=== PATIENT | male | born 1940 | race Caucasian/White ===

== ENCOUNTER 2022-08-24 00:52 | Inpatient (IN) | payer MEDICARE, OTHER ==
[2022-08-24] MEDS ORDERED: diphenhydrAMINE 50 MG/ML 1 ML VIAL IVP PRN (01:12)
[2022-08-24] MEDS: SODIUM CHLORIDE 0.9% 1,000 ML IV SCH ×3 (01:23→23:04)
[2022-08-24] MEDS: methylPREDNISolone SOD SUCCI 125 MG/2 ML VIAL IV SCH ×3 (01:23→17:27)
--- NOTE | 2022-08-24 01:26 | ED ---
General Adult HPI - General Chief complaint: Allergic Reaction Stated complaint: transfer/facial swelling Time Seen by Provider: 08/24/22 00:54 Source: EMS, RN notes reviewed, old records reviewed Mode of arrival: EMS Limitations: language barrier, altered mental status - History of Present Illness Initial comments: 81-year-old male sent as transfer from outside hospital for evaluation of angioedema. Patient unable to contribute to the history, secondary to autism. Patient is coming from the [place]. He has been prescribed lisinopril. He was treated at outside hospital with TXA, steroids, Pepcid and Benadryl. According to paramedics the swelling has significantly improved with treatment. There is no reported stridor. There is no dominant lip and tongue swelling which is improved. Patient is a DO NOT RESUSCITATE but it was noted in the medical record that he would be intubated if it was necessary - Related Data Allergies Allergy/AdvReac Type Severity Reaction Status Date / Time No Known Allergies Allergy Verified 08/24/22 01:19 Review of Systems ROS Statement: Those systems with pertinent positive or pertinent negative responses have been documented in the HPI. ROS Other: All systems not noted in ROS Statement are negative. 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 Absent: tenderness Skin exam: Present: warm, dry, intact Course Vital Signs 08/24/22 00:59 Temperature 97.6 F Pulse Rate 88 Respiratory 16 Rate Blood Pressure 113/73 O2 Sat by Pulse 94 L Oximetry Medical Decision Making - Medical Decision Making Was pt. sent in by a medical professional or institution (, PA, LOSS PREVENTION MANAGER, urgent care, hospital, or senior living...) When possible be specific @ Sent from outside hospital Did you speak to anyone other than the patient for history (EMS, parent, family, police, friend...)? What history was obtained from this source @ -EMS Did you review nursing and triage notes (agree or disagree)? Why? @ -[I reviewed and agree with nursing and triage notes] Were old charts reviewed (outside hosp., previous admission, EMS record, old EKG, old radiological studies, urgent care reports/EKG's, senior living records)? Report findings @ -[No old charts were reviewed] Differential Diagnosis (chest pain, altered mental status, abdominal pain women, abdominal pain men, vaginal bleeding, weakness, fever, dyspnea, syncope, headache, dizziness, GI bleed, back pain, seizure, CVA, palpatations, mental health, musculoskeletal)? @ -ALLERGIC reaction, angioedema EKG interpreted by me (3pts min.). @ -[As above] X-rays interpreted by me (1pt min.). @ -[None done] CT interpreted by me (1pt min.). @ -[None done] U/S interpreted by me (1pt. min.). @ -[None done] What testing was considered but not performed or refused? (CT, X-rays, U/S, labs)? Why? @ -[None] What meds were considered but not given or refused? Why? @ -[None] Did you discuss the management of the patient with other professionals (professionals i.e. , PA, LOSS PREVENTION MANAGER, lab, RT, psych nurse, healthcare social worker, fine patcher, teacher, customer service security officer, pillowcase cleaner)? Give summary @ -[No] Was smoking cessation discussed for >3mins.? @ -[No] Was critical care preformed (if so, how long)? @ -[No] Were there social determinants of health that impacted care today? How? (Home lessness, low income, unemployed, alcoholism, drug addiction, transportation, low edu. Level, literacy, decrease access to med. care, snf, rehab)? @ -Autistic, nonverbal Was there de-escalation of care discussed even if they declined (Discuss DNR or withdrawal of care, Hospice)? DNR status @ -DO NOT RESUSCITATE What co-morbidities impacted this encounter? (DM, HTN, Smoking, COPD, CAD, Cancer, CVA, ARF, Chemo, Hep., AIDS, mental health diagnosis, sleep apnea, morbid obesity)? @ -Hypertension Was patient admitted / discharged? Hospital course, mention meds given and route, prescriptions, significant lab abnormalities, going to OR and other pertinent info. @ -81-year-old male with angioedema, improving. Laboratory studies did reveal a sodium of 119. This will be repeated in the morning. Patient will be continued on steroids, and Benadryl. Undiagnosed new problem with uncertain prognosis? @ -[No] Drug Therapy requiring intensive monitoring for toxicity (Heparin, Nitro, Insulin, Cardizem)? @ -[No] Were any procedures done? @ -[No] Diagnosis/symptom? 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 @ -Acute Uncomplicated (without systemic symptoms) or Complicated (systemic symptoms)? @ -Complicated Side effects of treatment? @ -[No] Exacerbation, Progression, or Severe Exacerbation? @ -[No] Poses a threat to life or bodily function? How? (Chest pain, USA, PR, pneumonia, PE, COPD, DKA, ARF, appy, cholecystitis, CVA, Diverticulitis, Homicidal, Suicidal, threat to staff... and all critical care pts) @ -Yes, airway compromise, respiratory arrest Disposition Clinical Impression: Angioedema Disposition: ADMITTED IP TO THIS HOSP Condition: Serious Is patient prescribed a controlled substance at d/c from ED?: No Referrals: Elizabeth Lebron, HARINDER [Primary Care Provider] - 1-2 days Time of Disposition: 01:26
[2022-08-24] MEDS ORDERED: NALOXONE 0.4 MG/ML 1 ML VIAL IV PRN (01:28)
[2022-08-24] MEDS ORDERED: bisacodyL 10 MG SUPP RECTAL PRN (06:11)
[2022-08-24] MEDS: LEVOTHYROXINE 50 MCG TAB PO SCH (06:56)
[2022-08-24] MEDS ORDERED: guaiFENesin SYRUP 100MG/5ML 200 MG/10 ML CUP PO PRN (10:56)
[2022-08-24] MEDS ORDERED: diazePAM 5 MG TAB PO PRN (10:56)
[2022-08-24] MEDS ORDERED: guaiFENesin 600 MG TABLET.ER PO PRN (10:56)
[2022-08-24 12:26] LABS: Basophils % (A) 0 %; Eosinophils % (A) 0 %; HCT 35.7 % (39.0-53.0); HGB 12.5 gm/dL (13.0-17.5); Hyperchromasia Slight; Lymphocytes # (A) 0.5 k/uL (1.0-4.8); Lymphocytes % (A) 5 %; MCH 29.7 pg (25.0-35.0); MCHC 35.1 g/dL (31.0-37.0); MCV 84.6 fL (80.0-100.0); Mean Platelet Volume 7.1; Monocytes # (A) 0.1 k/uL (0-1.0); Monocytes % (A) 1 %; Neutrophils % (A) 94 %; Platelet Count 343 k/uL (150-450); RBC 4.22 m/uL (4.30-5.90); RDW 14.6 % (11.5-15.5); WBC 10.7 k/uL (3.8-10.6)
--- NOTE | 2022-08-24 14:26 | P.HPIM ---
History of Present Illness H&P Date: 08/24/22 History of present illness; patient 81-year-old gentleman with past medical history significant for autism who presented to our ER as a transfer from outside facility for angioedema. Patient is a resident of [facility], WAS RECENTLY STARTED ON LISINOPRIL. Patient was treated at outside hospital with TXA, steroids, Pepcid and Benadryl. According to paramedics the swelling has significantly improved with treatment. There was no reported stridor. Tongue swelling improved. Patient was admitted for further evaluation and treatment REVIEW OF SYSTEMS: Detailed review of systems cannot be obtained because of patient's current mental status PHYSICAL EXAMINATION: GENERAL: The patient HAS AUTISM, not in any acute distress. Well developed, well nourished. HEENT: Pupils are round and equally reacting to light. EOMI. No scleral icterus. No conjunctival pallor. Normocephalic, atraumatic. No pharyngeal erythema. No thyromegaly. CARDIOVASCULAR: S1 and S2 present. No murmurs, rubs, or gallops. PULMONARY: Chest is clear to auscultation, no wheezing or crackles. ABDOMEN: Soft, nontender, nondistended, normoactive bowel sounds. No palpable organomegaly. MUSCULOSKELETAL: No joint swelling or deformity. EXTREMITIES: No cyanosis, clubbing, or pedal edema. NEUROLOGICAL: Gross neurological examination did not reveal any focal deficits. SKIN: No rashes. 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, autism History of Any Multi-Drug Resistant Organisms: Unobtainable Past Psychological History: Unable to Obtain Smoking Status: Unknown if ever smoked Medications and Allergies Home Medications Medication Instructions Recorded Confirmed Type Acetaminophen Tab [Tylenol] 500 - 1,000 mg PO Q8HR PRN 08/24/22 08/24/22 History Aspirin 325 mg PO DAILY 08/24/22 08/24/22 History Bethanechol [Urecholine] 10 mg PO TID@0800,1600,2000 08/24/22 08/24/22 History Calcium Carb-Vit D 500Mg-5Mcg 1 tab PO DAILY@0800 08/24/22 08/24/22 History [Oscal 500+D 5 Mcg (200 Iu)] Levothyroxine Sodium [Levo-T] 50 mcg PO DAILY@1600 08/24/22 08/24/22 History Loperamide [Imodium] 2 mg PO DAILY@0800 08/24/22 08/24/22 History Magnesium Hydroxide [Milk of 4,800 mg PO Q3D PRN 08/24/22 08/24/22 History Magnesia] Mineral Oil [Fleet Mineral Oil] 133 ml RECTAL DAILY PRN 08/24/22 08/24/22 History Multivitamins, Thera [Multivitamin 1 tab PO DAILY@0800 08/24/22 08/24/22 History (formulary)] Mylanta 30 ml PO Q4H PRN 08/24/22 08/24/22 History Iicmjqhj-Xvcnbafyne-Puld Oint 1 applic TOPICAL BID PRN 08/24/22 08/24/22 History [Triple Antibiotic Ointment] Nystatin 100,000Unit/gm Cream 1 applic TOPICAL BID PRN 08/24/22 08/24/22 History [Mycostatin Cream] [place]-3/Dha/Epa/Fish Oil [Fish Oil 1 cap PO DAILY@0800 08/24/22 08/24/22 History 1,000 mg Softgel] Phenyleph/Mineral Oil/Petrolat 1 applic RECTAL BID PRN 08/24/22 08/24/22 History [Preparation H Ointment] Simvastatin 10 mg PO HS 08/24/22 08/24/22 History Tamsulosin [Flomax] 0.4 mg PO DAILY@0800 08/24/22 08/24/22 History bisacodyL [Dulcolax] 10 mg RECTAL DAILY PRN 08/24/22 08/24/22 History diazePAM [Valium] 5 mg PO DAILY PRN 08/24/22 08/24/22 History guaiFENesin [Mucinex] 600 mg PO Q6HR PRN 08/24/22 08/24/22 History guaiFENesin [guaiFENesin Oral 200 mg PO Q4H PRN 08/24/22 08/24/22 History Solution] lisinopriL [Zestril] 20 mg PO DAILY@0800 08/24/22 08/24/22 History Allergies Allergy/AdvReac Type Severity Reaction Status Date / Time lisinopril Allergy Severe Anaphylaxis Verified 08/24/22 07:13 Physical Exam Vitals: Vital Signs Temp Pulse Pulse Resp BP BP Pulse Ox 08/24/22 07:17 98.4 F 55 L 18 126/70 95 08/24/22 02:59 97.1 F L 82 18 152/87 98 08/24/22 02:33 83 16 119/74 95 08/24/22 00:59 97.6 F 88 16 113/73 94 L Intake and Output 08/23/22 08/24/22 08/24/22 22:59 06:59 14:59 Intake Total 20 Balance 20 Intake: Oral 20 Other: # Voids 1 1 Weight 89 kg Results CBC & Chem 7: 08/24/22 11:38 Thrombosis Risk Factor Assmnt - Choose All That Apply Any of the Below Risk Factors Present?: No
[2022-08-24] MEDS: BETHANECHOL 10 MG TAB PO SCH ×2 (17:28→22:19)
[2022-08-24] MEDS: ATORVASTATIN 10 MG TAB PO SCH (22:19)
[2022-08-24] MEDS: FAMOTIDINE 20 MG/2 ML VIAL IV SCH (23:01)
[2022-08-25] MEDS: methylPREDNISolone SOD SUCCI 125 MG/2 ML VIAL IV SCH ×3 (00:08→18:10)
[2022-08-25] MEDS: LEVOTHYROXINE 50 MCG TAB PO SCH (05:27)
[2022-08-25 09:03] LABS: Basophils # (A) 0.03 X 10*3/uL (0.00-0.10); Basophils % (A) 0.1 %; Eosinophils # (A) 0 X 10*3/uL (0.04-0.35); Eosinophils % (A) 0 %; HGB 12.3 g/dL (13.0-17.0); Immature Grans, Automated 2.7 %; Lymphocytes # (A) 0.71 X 10*3/uL (0.90-5.00); Lymphocytes % (A) 3.3 %; MCH 29.5 pg (27.0-32.0); MCHC 34.2 g/dL (32.0-37.0); MCV 86.3 fL (80.0-97.0); Mean Platelet Volume 8.7 fL (9.5-12.2); Monocytes # (A) 0.82 X 10*3/uL (0.20-1.00); Monocytes % (A) 3.8 %; NRBC Per 100 WBC 0 /100 WBCS (0.0-0.0); Neutrophils # (A) 19.29 X 10*3/uL (1.80-7.70); Neutrophils % (A) 90.1 %; Platelet Count 372 X 10*3/uL (140-440); RBC 4.17 X 10*6/uL (4.40-5.60); RDW 14.3 % (11.5-14.5); WBC 21.42 X 10*3/uL (4.50-10.00)
[2022-08-25 09:07] LABS: African American GFR (CKD) 28.7 (60.0-200.0); Albumin/Globulin Ratio 1.38 (1.60-3.17); Anion Gap 18.1 mmol/L (10.00-18.00); BUN/Creat Ratio 20.25 Ratio (12.00-20.00); Blood Urea Nitrogen 48.6 mg/dL (9.0-27.0); Calcium 9.4 mg/dL (8.7-10.3); Carbon Dioxide 14.9 mmol/L (20.0-27.5); Globulin 2.9 g/dL (1.6-3.3); Non-African American GFR(CKD) 24.7 (60.0-200.0); Potassium 4.8 mmol/L (3.5-5.5); Total Bilirubin 0.3 mg/dL (0.30-1.20); Total Protein 6.9 g/dL (6.2-8.2)
[2022-08-25] MEDS: BETHANECHOL 10 MG TAB PO SCH ×3 (09:36→19:37)
[2022-08-25] MEDS: CALCIUM CARB-VIT D 500 MG-5 MCG TAB PO SCH (09:36)
[2022-08-25] MEDS: FAMOTIDINE 20 MG/2 ML VIAL IV SCH (09:37)
[2022-08-25] MEDS: MULTIVITAMINS, THERA 1 EACH TAB PO SCH (09:37)
[2022-08-25] MEDS: ASPIRIN 325 MG TAB PO SCH (09:37)
[2022-08-25] MEDS: TAMSULOSIN 0.4 MG CAP.ER.24H PO SCH (09:37)
--- NOTE | 2022-08-25 13:15 | P.DS ---
Providers Date of admission: 08/24/22 01:28 Expected date of discharge: 08/25/22 Attending physician: Pablito Gallagher Primary care physician: HARINDER Pablo Hospital Course: Discharge diagnoses; Angioedema Autism Leukocytosis secondary to steroids Hyponatremia Hospital course; patient 81-year-old gentleman with past medical history significant for autism who presented to our ER as a transfer from outside facility for angioedema. Patient is a resident of [facility], WAS RECENTLY STARTED ON LISINOPRIL. Patient was treated at outside hospital with TXA, steroids, Pepcid and Benadryl. According to paramedics the swelling has significantly improved with treatment. There was no reported stridor. Tongue swelling improved. Patient was admitted for further evaluation and treatment 08/25. Patient was kept on steroids, Benadryl and Pepcid. Currently patient is not having any symptoms of stridor or throat swelling. Patient is tolerating diet. Will be discharged on Medrol Dosepak. We'll discontinue lisinopril at discharge PHYSICAL EXAMINATION: GENERAL: The patient HAS AUTISM, not in any acute distress. Well developed, well nourished. HEENT: Pupils are round and equally reacting to light. EOMI. No scleral icterus. No conjunctival pallor. Normocephalic, atraumatic. No pharyngeal erythema. No thyromegaly. CARDIOVASCULAR: S1 and S2 present. No murmurs, rubs, or gallops. PULMONARY: Chest is clear to auscultation, no wheezing or crackles. ABDOMEN: Soft, nontender, nondistended, normoactive bowel sounds. No palpable organomegaly. MUSCULOSKELETAL: No joint swelling or deformity. EXTREMITIES: No cyanosis, clubbing, or pedal edema. NEUROLOGICAL: Gross neurological examination did not reveal any focal deficits. SKIN: No rashes Patient Condition at Discharge: Stable Plan - Discharge Summary New Discharge Prescriptions: New methylPREDNISolone Dose Pack [Medrol Dose Pack] 4 mg PO DIRECTED #1 packet Continue Aspirin 325 mg PO DAILY Levothyroxine Sodium [Levo-T] 50 mcg PO DAILY@1600 Loperamide [Imodium] 2 mg PO DAILY@0800 Tamsulosin [Flomax] 0.4 mg PO DAILY@0800 diazePAM [Valium] 5 mg PO DAILY PRN PRN Reason: Agitation Mineral Oil [Fleet Mineral Oil] 133 ml RECTAL DAILY PRN PRN Reason: Constipation Acetaminophen Tab [Tylenol] 500 - 1,000 mg PO Q8HR PRN PRN Reason: Pain Magnesium Hydroxide [Milk of Magnesia] 4,800 mg PO Q3D PRN PRN Reason: Constipation Vgqhfhxg-Yrveuhqqqz-Uuqg Oint [Triple Antibiotic Ointment] 1 applic TOPICAL BID PRN PRN Reason: Skin Irritation Bethanechol [Urecholine] 10 mg PO TID@0800,1600,1999 [place]-3/Dha/Epa/Fish Oil [Fish Oil 1,000 mg Softgel] 1 cap PO DAILY@0800 Simvastatin 10 mg PO HS bisacodyL [Dulcolax] 10 mg RECTAL DAILY PRN PRN Reason: Constipation guaiFENesin [guaiFENesin Oral Solution] 200 mg PO Q4H PRN PRN Reason: Cough Phenyleph/Mineral Oil/Petrolat [Preparation H Ointment] 1 applic RECTAL BID PRN PRN Reason: Hemorrhoids guaiFENesin [Mucinex] 600 mg PO Q6HR PRN PRN Reason: Secretions Nystatin 100,000Unit/gm Cream [Mycostatin Cream] 1 applic TOPICAL BID PRN PRN Reason: Rash Mylanta 30 ml PO Q4H PRN PRN Reason: indigestion/heartburn Multivitamins, Thera [Multivitamin (formulary)] 1 tab PO DAILY@0800 Calcium Carb-Vit D 500Mg-5Mcg [Oscal 500+D 5 Mcg (200 Iu)] 1 tab PO DAILY@0800 Discontinued lisinopriL [Zestril] 20 mg PO DAILY@0800 Discharge Medication List Acetaminophen Tab [Tylenol] 500 - 1,000 mg PO Q8HR PRN 08/24/22 [History] Aspirin 325 mg PO DAILY 08/24/22 [History] Bethanechol [Urecholine] 10 mg PO TID@0800,1600,199908/24/22 [History] Calcium Carb-Vit D 500Mg-5Mcg [Oscal 500+D 5 Mcg (200 Iu)] 1 tab PO DAILY@0800 08/24/22 [History] Levothyroxine Sodium [Levo-T] 50 mcg PO DAILY@1600 08/24/22 [History] Loperamide [Imodium] 2 mg PO DAILY@0800 08/24/22 [History] Magnesium Hydroxide [Milk of Magnesia] 4,800 mg PO Q3D PRN 08/24/22 [History] Mineral Oil [Fleet Mineral Oil] 133 ml RECTAL DAILY PRN 08/24/22 [History] Multivitamins, Thera [Multivitamin (formulary)] 1 tab PO DAILY@0800 08/24/22 [History] Mylanta 30 ml PO Q4H PRN 08/24/22 [History] Ebkmrprd-Bgepxpvwur-Tyjj Oint [Triple Antibiotic Ointment] 1 applic TOPICAL BID PRN 08/24/22 [History] Nystatin 100,000Unit/gm Cream [Mycostatin Cream] 1 applic TOPICAL BID PRN 08/24/22 [History] [place]-3/Dha/Epa/Fish Oil [Fish Oil 1,000 mg Softgel] 1 cap PO DAILY@0800 [History] Phenyleph/Mineral Oil/Petrolat [Preparation H Ointment] 1 applic RECTAL BID PRN 08/24/22 [History] Simvastatin 10 mg PO HS 08/24/22 [History] Tamsulosin [Flomax] 0.4 mg PO DAILY@0800 08/24/22 [History] bisacodyL [Dulcolax] 10 mg RECTAL DAILY PRN 08/24/22 [History] diazePAM [Valium] 5 mg PO DAILY PRN 08/24/22 [History] guaiFENesin [Mucinex] 600 mg PO Q6HR PRN 08/24/22 [History] guaiFENesin [guaiFENesin Oral Solution] 200 mg PO Q4H PRN 08/24/22 [History] methylPREDNISolone Dose Pack [Medrol Dose Pack] 4 mg PO DIRECTED #1 packet 08/25/22 [Rx] Follow up Appointment(s)/Referral(s): Elizabeth Lebron NPC [Primary Care Provider] - 1-2 days Discharge Disposition: TRANSFER TO SNF/ECF
--- NOTE | 2022-08-25 13:27 | P.PN ---
Subjective Progress Note Date: 08/25/22 patient 81-year-old gentleman with past medical history significant for autism who presented to our ER as a transfer from outside facility for angioedema. Patient is a resident of [place], WAS RECENTLY STARTED ON LISINOPRIL. Patient was treated at outside hospital with TXA, steroids, Pepcid and Benadryl. According to paramedics the swelling has significantly improved with treatment. There was no reported stridor. Tongue swelling improved. Patient was admitted for further evaluation and treatment 08/25. Patient seen and examined. Patient has no further episodes of throat swelling or any evidence of any stridor. Current tolerating diet. Initial plan was for patient to be discharged but blood work done showed patient to have elevated BUN/creatinine, constipation PCP was in the file but patient apparently has not been seen by them since May 19 and has been discharged from their care. At this time we'll order ultrasound of kidneys, urine lites, bladder scan and consult nephrology REVIEW OF SYSTEMS: Unable to obtain a detailed review of systems because of patient history of autism PHYSICAL EXAMINATION: GENERAL: The patient HAS AUTISM, not in any acute distress. Well developed, well nourished. HEENT: Pupils are round and equally reacting to light. EOMI. No scleral icterus. No conjunctival pallor. Normocephalic, atraumatic. No pharyngeal erythema. No thyromegaly. CARDIOVASCULAR: S1 and S2 present. No murmurs, rubs, or gallops. PULMONARY: Chest is clear to auscultation, no wheezing or crackles. ABDOMEN: Soft, nontender, nondistended, normoactive bowel sounds. No palpable organomegaly. MUSCULOSKELETAL: No joint swelling or deformity. EXTREMITIES: No cyanosis, clubbing, or pedal edema. NEUROLOGICAL: Gross neurological examination did not reveal any focal deficits. SKIN: No rashes Assessment and plan Angioedema Autism Leukocytosis secondary to steroids Hyponatremia Acute kidney injury Plan Monitor vital signs Monitor CBC Monitor CMP Continue IV fluids Ordered urine lites Avoid nephrotoxic agents Ordered ultrasound of kidneys Continue IV fluids and consult nephrology Objective - Vital Signs Vital signs: Vital Signs Temp 98.9 F 08/25/22 07:25 Pulse 109 H 08/25/22 08:00 Resp 16 08/25/22 08:00 BP 142/72 08/25/22 07:25 Pulse Ox 94 L 08/25/22 07:25 FiO2 Intake & Output 08/24/22 08/25/22 08/25/22 18:59 06:59 18:59 Intake Total 1080 Balance 1080 Intake: Oral 1080 Other: Voiding Method Diaper Diaper Incontinent Incontinent # Voids 6 2 2 # Bowel Movements 2 2 - Labs CBC & Chem 7: 08/25/22 04:24 08/25/22 04:24 Labs: Abnormal Lab Results - Last 24 Hours (Table) 08/25/22 08/25/22 Range/Units 04:24 04:24 WBC 21.42 H (4.50-10.00) X 10*3/uL RBC 4.17 L (4.40-5.60) X 10*6/uL Hgb 12.3 L (13.0-17.0) g/dL Hct 36.0 L (39.6-50.0) % MPV 8.7 L (9.5-12.2) fL Immature Gran # 0.57 H (0.00-0.04) X 10*3/uL Neutrophils # 19.29 H (1.80-7.70) X 10*3/uL Lymphocytes # 0.71 L (0.90-5.00) X 10*3/uL Eosinophils # 0 L (0.04-0.35) X 10*3/uL Sodium 131 L (135-145) mmol/L Carbon Dioxide 14.9 L (20.0-27.5) mmol/L Anion Gap 18.10 H (10.00-18.00) mmol/L BUN 48.6 H (9.0-27.0) mg/dL Creatinine 2.4 H (0.6-1.5) mg/dL Est GFR (CKD-EPI)AfAm 28.7 L (60.0-200.0) Est GFR (CKD-EPI)NonAf 24.7 L (60.0-200.0) BUN/Creatinine Ratio 20.25 H (12.00-20.00) Ratio Glucose 179 H (70-110) mg/dL Albumin/Globulin Ratio 1.38 L (1.60-3.17) g/dL
--- NOTE | 2022-08-25 15:42 | US ---
EXAMINATION TYPE: US kidneys/renal and bladder DATE OF EXAM: 08/25/2022 COMPARISON: NONE CLINICAL HISTORY: Acute kidney injury. Exam done portable EXAM MEASUREMENTS: Right Kidney: 10.8 x 6.9 x 6.4 cm Left Kidney: n/a Right Kidney: Marked hydronephrosis Left Kidney: unable to visualize due to patient position and overlying bowel gas Bladder: echoes seen within posterior portion of bladder, 2.8cm outpouching diverticulum along right wall IMPRESSION: 1. Marked right hydronephrosis. 2. Left kidney not identified. 3. Debris within urinary bladder. 4. Urinary bladder diverticulum
[2022-08-25] MEDS ORDERED: MENTHOL-ZINC OXIDE OINT 113 GM TUBE TOPICAL PRN (16:27)
[2022-08-25 17:27] LABS: Appearance,Urine Turbid (Clear); Bacteria,Urine Many /hpf; Bilirubin,Urine Negative (Negative); Blood,Urine Moderate (Negative); Color,Urine Yellow; Glucose,Urine (UA) Negative (Negative); Ketones,Urine Negative (Negative); Leukocyte Esterase,Urine Large (Negative); Nitrite,Urine Negative (Negative); Protein,Urine 1+ (Negative); RBC,Urine 22 /hpf (0-5); Specific Gravity,Urine 1.019 (1.001-1.035); Urobilinogen,Urine <2.0 mg/dL (<2.0); WBC,Urine >182 /hpf (0-5)
[2022-08-25] MEDS: SODIUM CHLORIDE 0.9% 1,000 ML IV SCH ×2 (18:01→19:31)
[2022-08-25] MEDS: ATORVASTATIN 10 MG TAB PO SCH (19:37)
[2022-08-25] MEDS ORDERED: FAMOTIDINE 20 MG TAB PO SCH (21:00)
[2022-08-25 23:58] LABS: Potassium,Urine Random 28.7 mmol/L (25.0-125.0)
[2022-08-26] MEDS: methylPREDNISolone SOD SUCCI 125 MG/2 ML VIAL IV SCH ×3 (00:15→18:30)
[2022-08-26 04:35] LABS: Creatinine,Urine Random 56.6 mg/dL (39.0-259.0)
[2022-08-26] MEDS: LEVOTHYROXINE 50 MCG TAB PO SCH (05:47)
[2022-08-26] MEDS: MULTIVITAMINS, THERA 1 EACH TAB PO SCH (09:04)
[2022-08-26] MEDS: TAMSULOSIN 0.4 MG CAP.ER.24H PO SCH (09:04)
[2022-08-26] MEDS: CALCIUM CARB-VIT D 500 MG-5 MCG TAB PO SCH (09:04)
[2022-08-26] MEDS: BETHANECHOL 10 MG TAB PO SCH ×3 (09:05→21:08)
[2022-08-26] MEDS: ASPIRIN 325 MG TAB PO SCH (09:05)
[2022-08-26] MEDS: FAMOTIDINE 20 MG TAB PO SCH (09:05)
--- NOTE | 2022-08-26 11:37 | P.GSCN ---
History of Present Illness Consult date: 08/26/22 Reason for Consult: Urinary retention Requesting physician: Aime Ramirez History of present illness: The patient is a 81-year-old male with past medical history significant for hypertension and autism. He is nonverbal and blind and [facility] a [facility]. He presented to the emergency department as a transfer from an outside hospital on 08/24/22 for evaluation of angioedema. The patient had been started on lisinopril for his hypertension. He was treated at outside hospital with TXA, steroids, Pepcid and Benadryl. According to paramedics the swelling has significantly improved with treatment. There was no reported stridor. There have been no further episodes of throat swelling or any evidence of any stridor. Current tolerating diet. Medicines initial plan was for patient to be discharged but blood work done showed patient to have elevated BUN/creatinine. Kidney/bladder ultrasound shows marked right hydronephrosis, left kidney was not identified and urinary bladder diverticulum. On 08/25/22 the patient was bladder scanned which showed 922 mL of retained urine and a Quispe catheter was initiated. Urology was consulted for urinary retention. UA indicated of of UTI. Urine culture pending.Serum creatinine 2.4, baseline unknown. Nephrology following for LINO. Review of Systems ROS unobtainable: due to mental status Past Medical History Past Medical History: Hypertension Additional Past Medical History / Comment(s): Blind, autism History of Any Multi-Drug Resistant Organisms: Unobtainable Past Psychological History: Unable to Obtain Smoking Status: Unknown if ever smoked Medications and Allergies Home Medications Medication Instructions Recorded Confirmed Type Acetaminophen Tab [Tylenol] 500 - 1,000 mg PO Q8HR PRN 08/24/22 08/24/22 History Aspirin 325 mg PO DAILY 08/24/22 08/24/22 History Bethanechol [Urecholine] 10 mg PO TID@0800,1600,199908/24/22 08/24/22 History Calcium Carb-Vit D 500Mg-5Mcg 1 tab PO DAILY@0800 08/24/22 08/24/22 History [Oscal 500+D 5 Mcg (200 Iu)] Levothyroxine Sodium [Levo-T] 50 mcg PO DAILY@1600 08/24/22 08/24/22 History Loperamide [Imodium] 2 mg PO DAILY@0800 08/24/22 08/24/22 History Magnesium Hydroxide [Milk of 4,800 mg PO Q3D PRN 08/24/22 08/24/22 History Magnesia] Mineral Oil [Fleet Mineral Oil] 133 ml RECTAL DAILY PRN 08/24/22 08/24/22 History Multivitamins, Thera [Multivitamin 1 tab PO DAILY@0800 08/24/22 08/24/22 History (formulary)] Mylanta 30 ml PO Q4H PRN 08/24/22 08/24/22 History Vqwqkvqv-Odebywfgpk-Ccby Oint 1 applic TOPICAL BID PRN 08/24/22 08/24/22 History [Triple Antibiotic Ointment] Nystatin 100,000Unit/gm Cream 1 applic TOPICAL BID PRN 08/24/22 08/24/22 History [Mycostatin Cream] [place]ron-3/Dha/Epa/Fish Oil [Fish Oil 1 cap PO DAILY@0800 08/24/22 08/24/22 History 1,000 mg Softgel] Phenyleph/Mineral Oil/Petrolat 1 applic RECTAL BID PRN 08/24/22 08/24/22 History [Preparation H Ointment] Simvastatin 10 mg PO HS 08/24/22 08/24/22 History Tamsulosin [Flomax] 0.4 mg PO DAILY@0800 08/24/22 08/24/22 History bisacodyL [Dulcolax] 10 mg RECTAL DAILY PRN 08/24/22 08/24/22 History diazePAM [Valium] 5 mg PO DAILY PRN 08/24/22 08/24/22 History guaiFENesin [Mucinex] 600 mg PO Q6HR PRN 08/24/22 08/24/22 History guaiFENesin [guaiFENesin Oral 200 mg PO Q4H PRN 08/24/22 08/24/22 History Solution] methylPREDNISolone Dose Pack 4 mg PO DIRECTED #1 packet 08/25/22 Rx [Medrol Dose Pack] Allergies Allergy/AdvReac Type Severity Reaction Status Date / Time lisinopril Allergy Severe Anaphylaxis Verified 08/24/22 07:13 Surgical - Exam Vital Signs Temp Pulse Resp BP Pulse Ox 97.6 F 88 16 113/73 94 L 08/24/22 00:59 08/24/22 00:59 08/24/22 00:59 08/24/22 00:59 08/24/22 00:59 General: Well developed, well nourished. No acute distress. Nontoxic appearing. HEENT: Head is atraumatic, normocephalic. Lungs: Respirations even and nonlabored. Abdomen/GI: Soft, non-distended. No guarding, rigidity, or abdominal tenderness. No flank tenderness. : No suprapubic tenderness. Quispe catheter in place draining cloudy yellow u rine Skin: Warm and dry Neurologic: Autistic, nonverbal and blind Results - Labs 08/26/22 12:23 08/25/22 04:24 Abnormal Lab Results - Last 24 Hours (Table) 08/25/22 Range/Units 16:40 Urine Protein 1+ H (Negative) Urine Blood Moderate H (Negative) Ur Leukocyte Esterase Large H (Negative) Urine RBC 22 H (0-5) /hpf Urine WBC >182 H (0-5) /hpf Urine WBC Clumps Many H (None) /hpf Urine Bacteria Many H (None) /hpf Microbiology - Last 24 Hours (Table) 08/25/22 16:40 Urine Culture - Preliminary Urine,Voided - Imaging US - kidney/bladder: report reviewed Assessment and Plan Assessment: Patient is autistic, nonverbal, and from a penitentiary. History obtained from EMR. The patient is afebrile, vital signs are stable, and he is on room air. The patient has a Quispe catheter which is draining cloudy yellow urine. Given the degree of over distention, the patient's Quispe catheter should be maintained for 7-10 days to allow the bladder to regain its tone. Hydronephrosis is secondary to urinary retention. (1) Hydronephrosis Current Visit: Yes Status: Acute Code(s): N13.30 - UNSPECIFIED HYDRONEPHROSIS SNOMED Code(s): 85151876 Plan: - Awaiting finalization of urine - Continue antibiotics per medicine - Continue Flomax, started 08/25/22 - Monitor serum creatinine - Maintain Quispe catheter for 7-10 days, then remove Quispe catheter and attempt voiding trial Thank you for this consultation Impression and plan of care have been directed as dictated by the signing physician. Jennifer Lynne nurse practitioner acting as scribe for signing physician. Jennifer Lynne [facility] Palliative Care/Urology [place] [email or web address] Email: [email or web address] The chart has been reviewed and the patient examined. I concur with the above- mentioned note. The hydro-nephrosis is due to the retention. The patient appears to have a solitary kidney. Whether he'll be able to urinate spontaneously will be determined in the future. We'll follow with you. Cedrick Martell M.D.
--- NOTE | 2022-08-26 13:01 | P.NPCON ---
History of Present Illness - Reason for Consult acute renal failure - History of Present Illness Patient is a 81-year-old male with history of autism who was admitted to the hospital with history of tongue swelling and possibly difficulty in breathing. Patient was recently started on lisinopril. He received IV steroids Pepcid and Benadryl and the tongue swelling had significantly improved in the ER. Patient is not able to provide history Patient does not open his eyes Serum creatinine noted to be 2.4 mg/dL and CO2 was 14.9. It appears that patient was noted to have urine retention. 1400 mL of urine was obtained when Quispe catheter was placed. No prior labs available for comparison. Blood pressure has not been low. Not maintained on GARCIA inhibitor's or NSAIDs. Review of Systems As per HPI Past Medical History Past Medical History: Hypertension Additional Past Medical History / Comment(s): Blind, autism History of Any Multi-Drug Resistant Organisms: Unobtainable Past Psychological History: Unable to Obtain Smoking Status: Unknown if ever smoked Medications and Allergies Home Medications Medication Instructions Recorded Confirmed Type Acetaminophen Tab [Tylenol] 500 - 1,000 mg PO Q8HR PRN 08/24/22 08/24/22 History Aspirin 325 mg PO DAILY 08/24/22 08/24/22 History Bethanechol [Urecholine] 10 mg PO TID@0800,1600,199908/24/22 08/24/22 History Calcium Carb-Vit D 500Mg-5Mcg 1 tab PO DAILY@0800 08/24/22 08/24/22 History [Oscal 500+D 5 Mcg (200 Iu)] Levothyroxine Sodium [Levo-T] 50 mcg PO DAILY@1600 08/24/22 08/24/22 History Loperamide [Imodium] 2 mg PO DAILY@0800 08/24/22 08/24/22 History Magnesium Hydroxide [Milk of 4,800 mg PO Q3D PRN 08/24/22 08/24/22 History Magnesia] Mineral Oil [Fleet Mineral Oil] 133 ml RECTAL DAILY PRN 08/24/22 08/24/22 History Multivitamins, Thera [Multivitamin 1 tab PO DAILY@0800 08/24/22 08/24/22 History (formulary)] Mylanta 30 ml PO Q4H PRN 08/24/22 08/24/22 History Wnpchfyg-Tpzfgofaxk-Hrev Oint 1 applic TOPICAL BID PRN 08/24/22 08/24/22 History [Triple Antibiotic Ointment] Nystatin 100,000Unit/gm Cream 1 applic TOPICAL BID PRN 08/24/22 08/24/22 History [Mycostatin Cream] [place]-3/Dha/Epa/Fish Oil [Fish Oil 1 cap PO DAILY@0800 08/24/22 08/24/22 History 1,000 mg Softgel] Phenyleph/Mineral Oil/Petrolat 1 applic RECTAL BID PRN 08/24/22 08/24/22 History [Preparation H Ointment] Simvastatin 10 mg PO HS 08/24/22 08/24/22 History Tamsulosin [Flomax] 0.4 mg PO DAILY@0800 08/24/22 08/24/22 History bisacodyL [Dulcolax] 10 mg RECTAL DAILY PRN 08/24/22 08/24/22 History diazePAM [Valium] 5 mg PO DAILY PRN 08/24/22 08/24/22 History guaiFENesin [Mucinex] 600 mg PO Q6HR PRN 08/24/22 08/24/22 History guaiFENesin [guaiFENesin Oral 200 mg PO Q4H PRN 08/24/22 08/24/22 History Solution] methylPREDNISolone Dose Pack 4 mg PO DIRECTED #1 packet 08/25/22 Rx [Medrol Dose Pack] Allergies Allergy/AdvReac Type Severity Reaction Status Date / Time lisinopril Allergy Severe Anaphylaxis Verified 08/24/22 07:13 Physical Exam Vitals: Vital Signs Temp Pulse Resp BP Pulse Ox 08/26/22 07:30 98.9 F 56 L 16 144/85 97 08/26/22 03:04 98.5 F 93 18 141/83 100 08/25/22 19:35 97.7 F 102 H 16 138/80 98 08/25/22 13:59 98.6 F 100 18 140/82 98 Intake and Output 08/25/22 08/26/22 08/26/22 22:59 06:59 14:59 Intake Total 120 Output Total 1900 850 Balance -1900 -730 Intake: Oral 120 Output: Urine 1900 850 Uretheral (Quispe) 1400 450 Other: Voiding Method Indwelling Catheter Indwelling Catheter # Voids 1 # Bowel Movements 1 Patient was sleeping but arousable. He does not open his eyes Patient does not communicate Examination of the heart S1 and S2 Examination of the lungs bilateral breath sounds are heard Abdomen is soft nontender Examination lower extremity shows no edema Results - Lab Results Most recent lab results Calcium 9.4 mg/dL (8.7-10.3) 08/25/22 04:24 08/25/22 04:24 08/25/22 04:24 Assessment and Plan Assessment: 1. Acute kidney injury secondary to obstructive uropathy status post Quispe catheter placement. Also possible component of hypovolemia currently maintained on IV fluids. UA shows more than 182 WBCs 1+ protein and moderate blood. Ultrasound shows right hydronephrosis Damon at left kidney not identified 2. urine retention status post Quispe catheter placement with 1400 mL of urine obtained on Quispe cath placement 3. angioedema was secondary to lisinopril status post treatment, improved. 4. pyuria rule out UTI, maintained on ceftriaxone 5. Autism 6. Moderate right hydronephrosis left kidney not visualized. Urology consult Plan: Continue with IV fluids Continue with Quispe catheter Repeat labs Agree with urology consult next Thank you for the consultation. We will continue to follow the patient with you during his hospitalization
[2022-08-26 13:27] LABS: Basophils % (A) 0 %; Eosinophils % (A) 0 %; HCT 37.7 % (39.0-53.0); HGB 12.5 gm/dL (13.0-17.5); Lymphocytes # (A) 0.3 k/uL (1.0-4.8); Lymphocytes % (A) 2 %; MCH 29.6 pg (25.0-35.0); MCHC 33.2 g/dL (31.0-37.0); MCV 89.2 fL (80.0-100.0); Mean Platelet Volume 7.2; Monocytes # (A) 0.3 k/uL (0-1.0); Monocytes % (A) 2 %; Neutrophils # (A) 12.7 k/uL (1.3-7.7); Neutrophils % (A) 95 %; Platelet Count 368 k/uL (150-450); RBC 4.23 m/uL (4.30-5.90); RDW 14.7 % (11.5-15.5); WBC 13.5 k/uL (3.8-10.6)
[2022-08-26] MEDS: SODIUM CHLORIDE 0.9% 1,000 ML IV SCH ×2 (18:19→18:20)
[2022-08-26] MEDS: ATORVASTATIN 10 MG TAB PO SCH (21:08)
[2022-08-27] MEDS: methylPREDNISolone SOD SUCCI 125 MG/2 ML VIAL IV SCH ×3 (01:08→16:45)
[2022-08-27] MEDS: SODIUM CHLORIDE 0.9% 1,000 ML IV SCH ×3 (06:42→16:46)
[2022-08-27] MEDS: LEVOTHYROXINE 50 MCG TAB PO SCH (06:43)
[2022-08-27] MEDS: TAMSULOSIN 0.4 MG CAP.ER.24H PO SCH (08:26)
[2022-08-27] MEDS: ASPIRIN 325 MG TAB PO SCH (08:27)
[2022-08-27] MEDS: FAMOTIDINE 20 MG TAB PO SCH (08:27)
[2022-08-27] MEDS: CALCIUM CARB-VIT D 500 MG-5 MCG TAB PO SCH (08:27)
[2022-08-27] MEDS: MULTIVITAMINS, THERA 1 EACH TAB PO SCH (08:27)
[2022-08-27] MEDS: BETHANECHOL 10 MG TAB PO SCH ×3 (08:28→20:45)
[2022-08-27] MEDS ORDERED: guaiFENesin-DM 100-10MG/5ML 10 ML CUP PO PRN (09:44)
--- NOTE | 2022-08-27 10:53 | P.PN ---
Subjective Patient is seen for follow-up for acute kidney injury secondary to urine retention. About 1400 mL of urine was obtained on initial Quispe catheter p lacement. He was admitted with history of angioedema secondary to newly started lisinopril. Ultrasound shows moderate right hydronephrosis and left kidney was not visualized. Urology has been consult it and Quispe catheter is in place. 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 Patient pulled out his IV. Labs are pending from today Objective - Vital Signs Vital signs: Vital Signs Temp 97.9 F 08/27/22 07:01 Pulse 61 08/27/22 07:01 Resp 17 08/27/22 07:01 BP 122/77 08/27/22 07:01 Pulse Ox 98 08/27/22 07:01 FiO2 Intake & Output 08/26/22 08/27/22 08/27/22 18:59 06:59 18:59 Intake Total 1200 Output Total 600 2300 Balance -600 -1100 Intake: Intake, IV Titration 900 Amount Sodium Chloride 0.9% 1, 900 000 ml @ 75 mls/hr IV . [id number] [facility] Rx#:[id number] Oral 300 Output: Urine 600 2300 Uretheral (Quispe) 1200 Other: Voiding Method Indwelling Catheter Indwelling Catheter # Voids 1 # Bowel Movements 1 - Exam Patient was sleeping but arousable. He does not open his eyes Patient does not communicate Examination of the heart S1 and S2 Examination of the lungs bilateral breath sounds are heard Abdomen is soft nontender Examination lower extremity shows no edema - Labs CBC & Chem 7: 08/26/22 12:23 08/25/22 04:24 Labs: Abnormal Lab Results - Last 24 Hours (Table) 08/26/22 Range/Units 12:23 WBC 13.5 H (3.8-10.6) k/uL RBC 4.23 L (4.30-5.90) m/uL Hgb 12.5 L (13.0-17.5) gm/dL Hct 37.7 L (39.0-53.0) % Neutrophils # 12.7 H (1.3-7.7) k/uL Lymphocytes # 0.3 L (1.0-4.8) k/uL Microbiology - Last 24 Hours (Table) 08/25/22 16:40 Urine Culture - Final Urine,Voided Strep agalactiae - (group b) Assessment and Plan Assessment: 1. Acute kidney injury secondary to obstructive uropathy status post Quispe catheter placement. Also possible component of hypovolemia currently maintained on IV fluids. UA shows more than 182 WBCs 1+ protein and moderate blood. Ult rasound shows right hydronephrosis Damon at left kidney not identified 2. urine retention status post Quispe catheter placement with 1400 mL of urine obtained on Quispe cath placement 3. angioedema was secondary to lisinopril status post treatment, improved. 4. pyuria rule out UTI, maintained on ceftriaxone 5. Autism 6. Moderate right hydronephrosis left kidney not visualized. Urology consult 7. metabolic acidosis, anion gap, secondary to acute kidney injury and urine retention. Repeat labs are pending. This may have corrected with IV hydration and correction of urinary obstruction. Plan: Follow-up on labs from today and further orders for IV fluids versus discharge based on lab results. Continue with Quispe catheter
[2022-08-27 14:45] LABS: Basophils # (A) 0.02 X 10*3/uL (0.00-0.10); Basophils % (A) 0.1 %; Eosinophils # (A) 0 X 10*3/uL (0.04-0.35); Eosinophils % (A) 0 %; HCT 37.3 % (39.6-50.0); HGB 11.9 g/dL (13.0-17.0); Immature Grans, Automated 1.9 %; Lymphocytes # (A) 0.46 X 10*3/uL (0.90-5.00); Lymphocytes % (A) 3.1 %; MCH 29.1 pg (27.0-32.0); MCHC 31.9 g/dL (32.0-37.0); MCV 91.2 fL (80.0-97.0); Mean Platelet Volume 8.9 fL (9.5-12.2); Monocytes # (A) 0.56 X 10*3/uL (0.20-1.00); Monocytes % (A) 3.8 %; NRBC Per 100 WBC 0 /100 WBCS (0.0-0.0); Neutrophils # (A) 13.39 X 10*3/uL (1.80-7.70); Neutrophils % (A) 91.1 %; Platelet Count 319 X 10*3/uL (140-440); RBC 4.09 X 10*6/uL (4.40-5.60); RDW 15.4 % (11.5-14.5); WBC 14.71 X 10*3/uL (4.50-10.00)
[2022-08-27 15:14] LABS: African American GFR (CKD) 30.7 (60.0-200.0); Anion Gap 13.2 mmol/L (10.00-18.00); BUN/Creat Ratio 22.16 Ratio (12.00-20.00); Blood Urea Nitrogen 50.3 mg/dL (9.0-27.0); Carbon Dioxide 22.4 mmol/L (20.0-27.5); Non-African American GFR(CKD) 26.5 (60.0-200.0); Potassium 4.3 mmol/L (3.5-5.5)
[2022-08-27] MEDS: ATORVASTATIN 10 MG TAB PO SCH (20:45)
[2022-08-28] MEDS: methylPREDNISolone SOD SUCCI 125 MG/2 ML VIAL IV SCH ×3 (00:25→16:58)
[2022-08-28] MEDS: SODIUM CHLORIDE 0.9% 1,000 ML IV SCH (00:25)
[2022-08-28] MEDS: LEVOTHYROXINE 50 MCG TAB PO SCH (06:13)
[2022-08-28] MEDS: ASPIRIN 325 MG TAB PO SCH (08:09)
[2022-08-28] MEDS: TAMSULOSIN 0.4 MG CAP.ER.24H PO SCH (08:09)
[2022-08-28] MEDS: CALCIUM CARB-VIT D 500 MG-5 MCG TAB PO SCH (08:09)
[2022-08-28] MEDS: MULTIVITAMINS, THERA 1 EACH TAB PO SCH (08:09)
[2022-08-28] MEDS: BETHANECHOL 10 MG TAB PO SCH ×3 (08:09→20:09)
[2022-08-28] MEDS: FAMOTIDINE 20 MG TAB PO SCH (08:09)
[2022-08-28 11:14] LABS: Basophils # (A) 0.06 X 10*3/uL (0.00-0.10); Basophils % (A) 0.3 %; Eosinophils # (A) 0 X 10*3/uL (0.04-0.35); Eosinophils % (A) 0 %; HCT 39.2 % (39.6-50.0); HGB 12.5 g/dL (13.0-17.0); Lymphocytes % (A) 2.8 %; MCH 29.3 pg (27.0-32.0); MCHC 31.9 g/dL (32.0-37.0); MCV 91.8 fL (80.0-97.0); Mean Platelet Volume 9.2 fL (9.5-12.2); Monocytes # (A) 0.46 X 10*3/uL (0.20-1.00); Monocytes % (A) 2.6 %; NRBC Per 100 WBC 0 /100 WBCS (0.0-0.0); Neutrophils # (A) 16.33 X 10*3/uL (1.80-7.70); Neutrophils % (A) 92.3 %; Platelet Count 318 X 10*3/uL (140-440); RBC 4.27 X 10*6/uL (4.40-5.60); RDW 15.4 % (11.5-14.5)
[2022-08-28 11:24] LABS: African American GFR (CKD) 31.8 (60.0-200.0); Anion Gap 14.3 mmol/L (10.00-18.00); BUN/Creat Ratio 23.91 Ratio (12.00-20.00); Blood Urea Nitrogen 52.6 mg/dL (9.0-27.0); Calcium 9.3 mg/dL (8.7-10.3); Carbon Dioxide 17.7 mmol/L (20.0-27.5); Non-African American GFR(CKD) 27.5 (60.0-200.0); Potassium 4.5 mmol/L (3.5-5.5)
--- NOTE | 2022-08-28 15:42 | P.PN ---
Subjective Progress Note Date: 08/28/22 Follow-up for acute kidney injury, right hydronephrosis status post Quispe. Objective - Vital Signs Vital signs: Vital Signs Temp 98.6 F 08/28/22 14:00 Pulse 72 08/28/22 14:00 Resp 16 08/28/22 14:00 BP 141/66 08/28/22 14:00 Pulse Ox 98 08/28/22 14:00 FiO2 Intake & Output 08/27/22 08/28/22 08/28/22 18:59 06:59 18:59 Intake Total 830 Output Total 500 1490 1000 Balance 330 -1490 -1000 Intake: Intake, IV Titration 650 Amount Sodium Chloride 0.9% 1, 600 000 ml @ 75 mls/hr IV . [id number] [facility] Rx#:[id number] cefTRIAXone 2 gm In 50 Sodium Chloride 0.9% 50 ml @ 100 mls/hr IVPB Q24HR [facility] Rx#:[id number] Oral 180 Output: Urine 500 1490 1000 Other: Voiding Method Indwelling Catheter Diaper Indwelling Catheter Incontinent Indwelling Catheter - Exam No acute distress S1-S2 heard Decreased breath sounds No edema Quispe - Labs CBC & Chem 7: 08/28/22 06:59 08/28/22 06:59 Labs: Abnormal Lab Results - Last 24 Hours (Table) 08/28/22 08/28/22 Range/Units 06:59 06:59 WBC 17.70 H (4.50-10.00) X 10*3/uL RBC 4.27 L (4.40-5.60) X 10*6/uL Hgb 12.5 L (13.0-17.0) g/dL Hct 39.2 L (39.6-50.0) % MCHC 31.9 L (32.0-37.0) g/dL RDW 15.4 H (11.5-14.5) % MPV 9.2 L (9.5-12.2) fL Immature Gran # 0.35 H (0.00-0.04) X 10*3/uL Neutrophils # 16.33 H (1.80-7.70) X 10*3/uL Lymphocytes # 0.50 L (0.90-5.00) X 10*3/uL Eosinophils # 0 L (0.04-0.35) X 10*3/uL Sodium 146 H (135-145) mmol/L Chloride 114 H (96-109) mmol/L Carbon Dioxide 17.7 L (20.0-27.5) mmol/L BUN 52.6 H (9.0-27.0) mg/dL Creatinine 2.2 H (0.6-1.5) mg/dL Est GFR (CKD-EPI)AfAm 31.8 L (60.0-200.0) Est GFR (CKD-EPI)NonAf 27.5 L (60.0-200.0) BUN/Creatinine Ratio 23.91 H (12.00-20.00) Ratio Glucose 211 H (70-110) mg/dL Assessment and Plan Assessment: #1 acute kidney injury secondary to obstructive uropathy. #2 hypernatremia secondary to postobstructive diuresis #3 angioedema secondary to lisinopril #4 moderate right hydronephrosis, urology following Plan: #1 renal function stable. #2 change normal saline to half-normal saline, increased to 125 ML's an hour 3 daily labs
[2022-08-28] MEDS: SODIUM CHLORIDE 0.45% 1,000 ML IV SCH ×2 (16:58→23:32)
[2022-08-28] MEDS: ATORVASTATIN 10 MG TAB PO SCH (20:09)
--- NOTE | 2022-08-28 22:37 | P.PN ---
Subjective Progress Note Date: 08/26/22 patient 81-year-old gentleman with past medical history significant for autism who presented to our ER as a transfer from outside facility for angioedema. Patient is a resident of HOME, WAS RECENTLY STARTED ON LISINOPRIL. Patient was treated at outside hospital with TXA, steroids, Pepcid and Benadryl. According to paramedics the swelling has significantly improved with treatment. There was no reported stridor. Tongue swelling improved. Patient was admitted for further evaluation and treatment 08/25. Patient seen and examined. Patient has no further episodes of throat swelling or any evidence of any stridor. Current tolerating diet. Initial plan was for patient to be discharged but blood work done showed patient to have elevated BUN/creatinine, constipation PCP was in the file but patient apparently has not been seen by them since May 19 and has been discharged from their care. At this time we'll order ultrasound of kidneys, urine lites, bladder scan and consult nephrology 08/26/2022 Patient is currently lying in the bed. Patient is awake and alert but could not communicate. Patient is legally blind. Currently on room air. Was able to tolerate with one-to-one feeding. Otherwise patient is status post Quispe catheter placement yesterday with urinary retention greater than 922 mL as per bladder scan. Urology recommends to continue Flomax and continue Quispe catheter for 7 to 10 days and attempt voiding trial. Patient is being continued on ceftriaxone. Urine culture showed strep agalactiae. Laboratory data showed WBC trending down to 13.5 hemoglobin 12.5 and platelets 368 Nephrology and urology is on board. Current medications reviewed. REVIEW OF SYSTEMS: Unable to obtain a detailed review of systems because of patient history of autism PHYSICAL EXAMINATION: GENERAL: The patient HAS AUTISM, not in any acute distress. Well developed, well nourished. HEENT: b/l bilindness. EOMI. No scleral icterus. No conjunctival pallor. Normocephalic, atraumatic. No pharyngeal erythema. No thyromegaly. CARDIOVASCULAR: S1 and S2 present. No murmurs, rubs, or gallops. PULMONARY: Chest is clear to auscultation, no wheezing or crackles. ABDOMEN: Soft, nontender, nondistended, normoactive bowel sounds. No palpable organomegaly. MUSCULOSKELETAL: No joint swelling or deformity. EXTREMITIES: No cyanosis, clubbing, or pedal edema. NEUROLOGICAL: Gross neurological examination did not reveal any focal deficits. SKIN: No rashes Assessment and plan Acute urinary retention s/p Quispe catheter placement Acute kidney injury secondary to obstructive uropathy. Possible component of hypovolemia. Right hydronephrosis Abnormal urinalysis-possible UTI. Urine cultures. Recollected. Angioedema likely due to lisinopril which is on hold. Improved. Autism Leukocytosis secondary to steroids Hyponatremia DVT Proph. Plan Plan: Patient will be continued on methylprednisolone. Will continue to taper off. Continue with IV hydration and status post Quispe catheter placement. Continue Flomax and trial void in the next 7 to 10 days. Follow-up CBC and BMP. Continue with home medications. Urology and nephrology is on board. Objective - Vital Signs Vital signs: Vital Signs Temp 98.9 F 08/26/22 07:30 Pulse 56 L 08/26/22 07:30 Resp 16 08/26/22 07:30 BP 144/85 08/26/22 07:30 Pulse Ox 97 08/26/22 07:30 FiO2 Intake & Output 08/25/22 08/26/22 08/26/22 18:59 06:59 18:59 Intake Total 120 Output Total 1400 1350 Balance -1400 -1230 Intake: Oral 120 Output: Urine 1400 1350 Uretheral (Quispe) 1400 450 Other: Voiding Method Diaper Indwelling Catheter Indwelling Catheter Incontinent # Voids 1 # Bowel Movements 1 - Labs CBC & Chem 7: 08/28/22 06:59 08/28/22 06:59 Labs: Abnormal Lab Results - Last 24 Hours (Table) 08/25/22 Range/Units 16:40 Urine Protein 1+ H (Negative) Urine Blood Moderate H (Negative) Ur Leukocyte Esterase Large H (Negative) Urine RBC 22 H (0-5) /hpf Urine WBC >182 H (0-5) /hpf Urine WBC Clumps Many H (None) /hpf Urine Bacteria Many H (None) /hpf Microbiology - Last 24 Hours (Table) 08/25/22 16:40 Urine Culture - Preliminary Urine,Voided
--- NOTE | 2022-08-28 22:42 | P.PN ---
Subjective Progress Note Date: 08/27/22 patient 81-year-old gentleman with past medical history significant for autism who presented to our ER as a transfer from outside facility for angioedema. Patient is a resident of HOME, WAS RECENTLY STARTED ON LISINOPRIL. Patient was treated at outside hospital with TXA, steroids, Pepcid and Benadryl. According to paramedics the swelling has significantly improved with treatment. There was no reported stridor. Tongue swelling improved. Patient was admitted for further evaluation and treatment 08/25. Patient seen and examined. Patient has no further episodes of throat swelling or any evidence of any stridor. Current tolerating diet. Initial plan was for patient to be discharged but blood work done showed patient to have elevated BUN/creatinine, constipation PCP was in the file but patient apparently has not been seen by them since May 19 and has been discharged from their care. At this time we'll order ultrasound of kidneys, urine lites, bladder scan and consult nephrology 08/26/2022 Patient is currently lying in the bed. Patient is awake and alert but could not communicate. Patient is legally blind. Currently on room air. Was able to tolerate with one-to-one feeding. Otherwise patient is status post Quispe catheter placement yesterday with urinary retention greater than 922 mL as per bladder scan. Urology recommends to continue Flomax and continue Quispe catheter for 7 to 10 days and attempt voiding trial. Patient is being continued on ceftriaxone. Urine culture showed strep agalactiae. Laboratory data showed WBC trending down to 13.5 hemoglobin 12.5 and platelets 368 Nephrology and urology is on board. 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 Could not communicate. Does not appear to be in pain. Able to tolerate his oral diet with one-to-one feeding. Currently on room air. Patient is being current on IV Solu-Medrol for angioedema. IV hydration with normal saline and Quispe catheter in place. Laboratory data showed WBC 14.7 hemoglobin 11.9 and platelets 319 BUN 50.3 and creatinine 2.3 and blood sugar is 257. Urine culture showed strep agalectae. Nephrology is on board. Current medications reviewed. REVIEW OF SYSTEMS: Unable to obtain a detailed review of systems because of patient history of autism PHYSICAL EXAMINATION: GENERAL: The patient HAS AUTISM, not in any acute distress. Well developed, well nourished. HEENT: b/l bilindness. EOMI. No scleral icterus. No conjunctival pallor. Normocephalic, atraumatic. No pharyngeal erythema. No thyromegaly. CARDIOVASCULAR: S1 and S2 present. No murmurs, rubs, or gallops. PULMONARY: Chest is clear to auscultation, no wheezing or crackles. ABDOMEN: Soft, nontender, nondistended, normoactive bowel sounds. No palpable organomegaly. MUSCULOSKELETAL: No joint swelling or deformity. EXTREMITIES: No cyanosis, clubbing, or pedal edema. NEUROLOGICAL: Gross neurological examination did not reveal any focal deficits. SKIN: No rashes Assessment and plan Acute urinary retention s/p Quispe catheter placement Acute kidney injury secondary to obstructive uropathy. Possible component of hypovolemia. Right hydronephrosis Abnormal urinalysis-possible UTI. Urine cultures. Recollected. Angioedema likely due to lisinopril which is on hold. Improved. Autism Leukocytosis secondary to steroids Hyponatremia DVT Proph. Plan Plan: Patient will be continued on methylprednisolone. Will continue to taper off. Continue with IV hydration and status post Quispe catheter placement. Continue Flomax and trial void in the next 7 to 10 days. Follow-up CBC and BMP. Continue with home medications. Urology and nephrology is on board. Objective - Vital Signs Vital signs: Vital Signs Temp 98.2 F 08/27/22 19:28 Pulse 65 08/27/22 21:28 Resp 18 08/27/22 21:28 BP 141/65 08/27/22 19:28 Pulse Ox 93 L 08/27/22 19:28 FiO2 Intake & Output 08/27/22 08/27/22 08/28/22 06:59 18:59 06:59 Intake Total 1200 830 Output Total 2300 500 390 Balance -1100 330 -390 Intake: Intake, IV Titration 900 650 Amount Sodium Chloride 0.9% 1, 900 600 000 ml @ 75 mls/hr IV . [id number] JAISON Rx#:[id number] cefTRIAXone 2 gm In 50 Sodium Chloride 0.9% 50 ml @ 100 mls/hr IVPB Q24HR JAISON Rx#:[id number] Oral 300 180 Output: Urine 2300 500 390 Uretheral (Quispe) 1200 Other: Voiding Method Indwelling Catheter Indwelling Catheter Diaper Incontinent Indwelling Catheter # Bowel Movements 1 - Labs CBC & Chem 7: 08/28/22 06:59 08/28/22 06:59 Labs: Abnormal Lab Results - Last 24 Hours (Table) 08/27/22 08/27/22 Range/Units 09:43 09:43 WBC 14.71 H (4.50-10.00) X 10*3/uL RBC 4.09 L (4.40-5.60) X 10*6/uL Hgb 11.9 L (13.0-17.0) g/dL Hct 37.3 L (39.6-50.0) % MCHC 31.9 L (32.0-37.0) g/dL RDW 15.4 H (11.5-14.5) % MPV 8.9 L (9.5-12.2) fL Immature Gran # 0.28 H (0.00-0.04) X 10*3/uL Neutrophils # 13.39 H (1.80-7.70) X 10*3/uL Lymphocytes # 0.46 L (0.90-5.00) X 10*3/uL Eosinophils # 0 L (0.04-0.35) X 10*3/uL BUN 50.3 H (9.0-27.0) mg/dL Creatinine 2.3 H (0.6-1.5) mg/dL Est GFR (CKD-EPI)AfAm 30.7 L (60.0-200.0) Est GFR (CKD-EPI)NonAf 26.5 L (60.0-200.0) BUN/Creatinine Ratio 22.16 H (12.00-20.00) Ratio Glucose 257 H (70-110) mg/dL Microbiology - Last 24 Hours (Table) 08/25/22 16:40 Urine Culture - Final Urine,Voided Strep agalactiae - (group b)
--- NOTE | 2022-08-28 22:45 | P.PN ---
Subjective Progress Note Date: 08/28/22 patient 81-year-old gentleman with past medical history significant for autism who presented to our ER as a transfer from outside facility for angioedema. Patient is a resident of HOME, WAS RECENTLY STARTED ON LISINOPRIL. Patient was treated at outside hospital with TXA, steroids, Pepcid and Benadryl. According to paramedics the swelling has significantly improved with treatment. There was no reported stridor. Tongue swelling improved. Patient was admitted for further evaluation and treatment 08/25. Patient seen and examined. Patient has no further episodes of throat swelling or any evidence of any stridor. Current tolerating diet. Initial plan was for patient to be discharged but blood work done showed patient to have elevated BUN/creatinine, constipation PCP was in the file but patient apparently has not been seen by them since May 19 and has been discharged from their care. At this time we'll order ultrasound of kidneys, urine lites, bladder scan and consult nephrology 08/26/2022 Patient is currently lying in the bed. Patient is awake and alert but could not communicate. Patient is legally blind. Currently on room air. Was able to tolerate with one-to-one feeding. Otherwise patient is status post Quispe catheter placement yesterday with urinary retention greater than 922 mL as per bladder scan. Urology recommends to continue Flomax and continue Quispe catheter for 7 to 10 days and attempt voiding trial. Patient is being continued on ceftriaxone. Urine culture showed strep agalactiae. Laboratory data showed WBC trending down to 13.5 hemoglobin 12.5 and platelets 368 Nephrology and urology is on board. 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 Could not communicate. Does not appear to be in pain. Able to tolerate his oral diet with one-to-one feeding. Currently on room air. Patient is being current on IV Solu-Medrol for angioedema. IV hydration with normal saline and Quispe catheter in place. Laboratory data showed WBC 14.7 hemoglobin 11.9 and platelets 319 BUN 50.3 and creatinine 2.3 and blood sugar is 257. Urine culture showed strep agalectae. Nephrology is on board. 08/28/2022 Patient is currently resting in bed. Could not communicate due to underlying mental status/autism and patient is also deaf and blind at baseline. Patient has been afebrile. Currently on room air and saturating at 98%. Afebrile overnight. Quispe catheter in place. Laboratory data showed WBC 17.7 and hemoglobin 12.5 and platelets 318 BUN 52.6 and creatinine 2.2 and blood sugar 211 Patient is being current on IV Solu-Medrol, reduce it to 40 mg every 12 hourly and will be changed to by mouth tomorrow. Current medications reviewed. REVIEW OF SYSTEMS: Unable to obtain a detailed review of systems because of patient history of auti sm PHYSICAL EXAMINATION: GENERAL: The patient HAS AUTISM, not in any acute distress. Well developed, well nourished. HEENT: b/l bilindness. EOMI. No scleral icterus. No conjunctival pallor. Normoc ephalic, atraumatic. No pharyngeal erythema. No thyromegaly. CARDIOVASCULAR: S1 and S2 present. No murmurs, rubs, or gallops. PULMONARY: Chest is clear to auscultation, no wheezing or crackles. ABDOMEN: Soft, nontender, nondistended, normoactive bowel sounds. No palpable organomegaly. MUSCULOSKELETAL: No joint swelling or deformity. EXTREMITIES: No cyanosis, clubbing, or pedal edema. NEUROLOGICAL: Gross neurological examination did not reveal any focal deficits. SKIN: No rashes Assessment and plan Acute urinary retention s/p Quispe catheter placement Acute kidney injury secondary to obstructive uropathy. Possible component of hypovolemia. Right hydronephrosis Abnormal urinalysis-possible UTI. Urine culturee showed strep agalectae Angioedema likely due to lisinopril which is on hold. Improved. Autism Leukocytosis secondary to steroids Hyponatremia DVT Proph. Plan Plan: Patient will be continued on methylprednisolone. Will continue to taper off. Continue with IV hydration -chnaged to 0.45% . c/w Quispe catheter. Continue Flomax and trial void in the next 7 to 10 days. Follow-up CBC and BMP. Continue with home medications. Urology and nephrology is on board. Objective - Vital Signs Vital signs: Vital Signs Temp 97.1 F L 08/28/22 20:00 Pulse 80 08/28/22 20:00 Resp 17 08/28/22 20:00 BP 168/78 08/28/22 20:00 Pulse Ox 94 L 08/28/22 20:00 FiO2 Intake & Output 08/28/22 08/28/22 08/29/22 06:59 18:59 06:59 Intake Total 1080 Output Total 1490 1600 Balance -1490 -520 Intake: Oral 1080 Output: Urine 1490 1600 Other: Voiding Method Diaper Indwelling Catheter Indwelling Catheter Incontinent Indwelling Catheter - Labs CBC & Chem 7: 08/28/22 06:59 08/28/22 06:59 Labs: Abnormal Lab Results - Last 24 Hours (Table) 08/28/22 08/28/22 Range/Units 06:59 06:59 WBC 17.70 H (4.50-10.00) X 10*3/uL RBC 4.27 L (4.40-5.60) X 10*6/uL Hgb 12.5 L (13.0-17.0) g/dL Hct 39.2 L (39.6-50.0) % MCHC 31.9 L (32.0-37.0) g/dL RDW 15.4 H (11.5-14.5) % MPV 9.2 L (9.5-12.2) fL Immature Gran # 0.35 H (0.00-0.04) X 10*3/uL Neutrophils # 16.33 H (1.80-7.70) X 10*3/uL Lymphocytes # 0.50 L (0.90-5.00) X 10*3/uL Eosinophils # 0 L (0.04-0.35) X 10*3/uL Sodium 146 H (135-145) mmol/L Chloride 114 H (96-109) mmol/L Carbon Dioxide 17.7 L (20.0-27.5) mmol/L BUN 52.6 H (9.0-27.0) mg/dL Creatinine 2.2 H (0.6-1.5) mg/dL Est GFR (CKD-EPI)AfAm 31.8 L (60.0-200.0) Est GFR (CKD-EPI)NonAf 27.5 L (60.0-200.0) BUN/Creatinine Ratio 23.91 H (12.00-20.00) Ratio Glucose 211 H (70-110) mg/dL
[2022-08-28] MEDS ORDERED: DEXTROSE 50% SYRINGE 50 ML IVP PRN ×2 (22:49)
[2022-08-29 06:19] LABS: Glucose,Whole Blood 135 mg/dL (70-110)
[2022-08-29] MEDS: INSULIN ASPART (NovoLOG) 100 UNIT/ML VIAL SQ SCH ×4 (06:20→20:55)
[2022-08-29] MEDS: LEVOTHYROXINE 50 MCG TAB PO SCH (06:25)
[2022-08-29] MEDS: SODIUM CHLORIDE 0.45% 1,000 ML IV SCH ×3 (06:29→22:43)
[2022-08-29] MEDS: TAMSULOSIN 0.4 MG CAP.ER.24H PO SCH (09:16)
[2022-08-29] MEDS: ASPIRIN 325 MG TAB PO SCH (09:16)
[2022-08-29] MEDS: MULTIVITAMINS, THERA 1 EACH TAB PO SCH (09:16)
[2022-08-29] MEDS: methylPREDNISolone SOD SUCCI 40 MG/ML 1 ML VIAL IV SCH ×2 (09:17→20:54)
[2022-08-29] MEDS: BETHANECHOL 10 MG TAB PO SCH ×3 (09:17→20:54)
[2022-08-29] MEDS: CALCIUM CARB-VIT D 500 MG-5 MCG TAB PO SCH (09:17)
[2022-08-29] MEDS: FAMOTIDINE 20 MG TAB PO SCH (09:17)
[2022-08-29 11:00] LABS: Basophils # (A) 0.06 X 10*3/uL (0.00-0.10); Basophils % (A) 0.4 %; Eosinophils # (A) 0 X 10*3/uL (0.04-0.35); Eosinophils % (A) 0 %; HCT 39.6 % (39.6-50.0); HGB 12.7 g/dL (13.0-17.0); Immature Grans, Automated 2.3 %; Lymphocytes # (A) 0.84 X 10*3/uL (0.90-5.00); Lymphocytes % (A) 5.1 %; MCH 29.2 pg (27.0-32.0); MCHC 32.1 g/dL (32.0-37.0); Mean Platelet Volume 9.2 fL (9.5-12.2); Monocytes # (A) 0.82 X 10*3/uL (0.20-1.00); NRBC Per 100 WBC 0.1 /100 WBCS (0.0-0.0); Neutrophils # (A) 14.27 X 10*3/uL (1.80-7.70); Neutrophils % (A) 87.2 %; Platelet Count 291 X 10*3/uL (140-440); RBC 4.35 X 10*6/uL (4.40-5.60); WBC 16.36 X 10*3/uL (4.50-10.00)
[2022-08-29 11:11] LABS: African American GFR (CKD) 35.7 (60.0-200.0); Anion Gap 14.3 mmol/L (10.00-18.00); BUN/Creat Ratio 24.3 Ratio (12.00-20.00); Blood Urea Nitrogen 48.6 mg/dL (9.0-27.0); Calcium 9.2 mg/dL (8.7-10.3); Carbon Dioxide 20.7 mmol/L (20.0-27.5); Non-African American GFR(CKD) 30.8 (60.0-200.0); Potassium 4.5 mmol/L (3.5-5.5)
[2022-08-29 11:53] LABS: Glucose,Whole Blood 157 mg/dL (70-110)
[2022-08-29 16:07] LABS: Glucose,Whole Blood 232 mg/dL (70-110)
--- NOTE | 2022-08-29 16:22 | P.PN ---
Subjective Progress Note Date: 08/29/22 Follow-up for acute kidney injury, right hydronephrosis status post Quispe. Objective - Vital Signs Vital signs: Vital Signs Temp 98.0 F 08/29/22 12:14 Pulse 52 L 08/29/22 12:14 Resp 16 08/29/22 12:14 BP 192/78 08/29/22 12:14 Pulse Ox 97 08/29/22 12:14 FiO2 Intake & Output 08/28/22 08/29/22 08/29/22 18:59 06:59 18:59 Intake Total 1080 1050 Output Total 1600 2200 900 Balance -520 -2200 150 Intake: Intake, IV Titration 1050 Amount Sodium Chloride 0.45% 1, 1000 000 ml @ 125 mls/hr IV . Q8H JAISON Rx#:[id number] cefTRIAXone 2 gm In 50 Sodium Chloride 0.9% 50 ml @ 100 mls/hr IVPB Q24HR JAISON Rx#:[id number] Oral 1080 Output: Urine 1600 2200 900 Other: Voiding Method Indwelling Catheter Indwelling Catheter Indwelling Catheter # Bowel Movements 1 - Exam No acute distress S1-S2 heard Decreased breath sounds No edema Quispe - Labs CBC & Chem 7: 08/29/22 07:50 08/29/22 07:50 Labs: Abnormal Lab Results - Last 24 Hours (Table) 08/29/22 08/29/22 08/29/22 Range/Units 06:18 07:50 07:50 WBC (4.50-10.00) X 10*3/uL RBC (4.40-5.60) X 10*6/uL Hgb (13.0-17.0) g/dL RDW (11.5-14.5) % MPV (9.5-12.2) fL Absolute Nucleated RBC (0.00-0.00) X 10*3/uL Immature Gran # (0.00-0.04) X 10*3/uL Neutrophils # (1.80-7.70) X 10*3/uL Lymphocytes # (0.90-5.00) X 10*3/uL Eosinophils # (0.04-0.35) X 10*3/uL NRBC/100 WBC Diff (0.0-0.0) /100 WBCS BUN 48.6 H (9.0-27.0) mg/dL Creatinine 2.0 H (0.6-1.5) mg/dL Est GFR (CKD-EPI)AfAm 35.7 L (60.0-200.0) Est GFR (CKD-EPI)NonAf 30.8 L (60.0-200.0) BUN/Creatinine Ratio 24.30 H (12.00-20.00) Ratio Glucose 138 H (70-110) mg/dL POC Glucose (mg/dL) 135 H (70-110) mg/dL Hemoglobin A1c 6.2 H (0.0-6.0) % 08/29/22 08/29/22 08/29/22 Range/Units 07:50 11:51 16:04 WBC 16.36 H (4.50-10.00) X 10*3/uL RBC 4.35 L (4.40-5.60) X 10*6/uL Hgb 12.7 L (13.0-17.0) g/dL RDW 15.0 H (11.5-14.5) % MPV 9.2 L (9.5-12.2) fL Absolute Nucleated RBC 0.02 H (0.00-0.00) X 10*3/uL Immature Gran # 0.37 H (0.00-0.04) X 10*3/uL Neutrophils # 14.27 H (1.80-7.70) X 10*3/uL Lymphocytes # 0.84 L (0.90-5.00) X 10*3/uL Eosinophils # 0 L (0.04-0.35) X 10*3/uL NRBC/100 WBC Diff 0.1 H (0.0-0.0) /100 WBCS BUN (9.0-27.0) mg/dL Creatinine (0.6-1.5) mg/dL Est GFR (CKD-EPI)AfAm (60.0-200.0) Est GFR (CKD-EPI)NonAf (60.0-200.0) BUN/Creatinine Ratio (12.00-20.00) Ratio Glucose (70-110) mg/dL POC Glucose (mg/dL) 157 H 232 H (70-110) mg/dL Hemoglobin A1c (0.0-6.0) % Assessment and Plan Assessment: #1 acute kidney injury secondary to obstructive uropathy. #2 hypernatremia secondary to postobstructive diuresis #3 angioedema secondary to lisinopril #4 moderate right hydronephrosis, urology following Plan: #1 renal function stable. #2 continue with IV fluids. 3 daily labs
[2022-08-29 20:45] LABS: Glucose,Whole Blood 155 mg/dL (70-110)
[2022-08-29] MEDS: ATORVASTATIN 10 MG TAB PO SCH (20:54)
--- NOTE | 2022-08-30 00:39 | P.PN ---
Subjective Progress Note Date: 08/29/22 patient 81-year-old gentleman with past medical history significant for autism who presented to our ER as a transfer from outside facility for angioedema. Patient is a resident of HOME, WAS RECENTLY STARTED ON LISINOPRIL. Patient was treated at outside hospital with TXA, steroids, Pepcid and Benadryl. According to paramedics the swelling has significantly improved with treatment. There was no reported stridor. Tongue swelling improved. Patient was admitted for further evaluation and treatment 08/25. Patient seen and examined. Patient has no further episodes of throat swelling or any evidence of any stridor. Current tolerating diet. Initial plan was for patient to be discharged but blood work done showed patient to have elevated BUN/creatinine, constipation PCP was in the file but patient apparently has not been seen by them since May 19 and has been discharged from their care. At this time we'll order ultrasound of kidneys, urine lites, bladder scan and consult nephrology 08/26/2022 Patient is currently lying in the bed. Patient is awake and alert but could not communicate. Patient is legally blind. Currently on room air. Was able to tolerate with one-to-one feeding. Otherwise patient is status post Quispe catheter placement yesterday with urinary retention greater than 922 mL as per bladder scan. Urology recommends to continue Flomax and continue Quispe catheter for 7 to 10 days and attempt voiding trial. Patient is being continued on ceftriaxone. Urine culture showed strep agalactiae. Laboratory data showed WBC trending down to 13.5 hemoglobin 12.5 and platelets 368 Nephrology and urology is on board. 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 Could not communicate. Does not appear to be in pain. Able to tolerate his oral diet with one-to-one feeding. Currently on room air. Patient is being current on IV Solu-Medrol for angioedema. IV hydration with normal saline and Qiuspe catheter in place. Laboratory data showed WBC 14.7 hemoglobin 11.9 and platelets 319 BUN 50.3 and creatinine 2.3 and blood sugar is 257. Urine culture showed strep agalectae. Nephrology is on board. 08/28/2022 Patient is currently resting in bed. Could not communicate due to underlying mental status/autism and patient is also deaf and blind at baseline. Patient has been afebrile. Currently on room air and saturating at 98%. Afebrile overnight. Quispe catheter in place. Laboratory data showed WBC 17.7 and hemoglobin 12.5 and platelets 318 BUN 52.6 and creatinine 2.2 and blood sugar 211 Patient is being current on IV Solu-Medrol, reduce it to 40 mg every 12 hourly and will be changed to by mouth tomorrow. 08/29/2022 Patient is lying in the bed. Appears to be in no distress. Patient is deaf and blind at baseline. Otherwise afebrile. Patient does have good urine output. Currently on IV hydration with half-normal saline. Renal function with slight improvement to 2.0. Other laboratory data showed WBC 16.3 hemoglobin 12.7 and platelets 291 BUN 48.6 and creatinine 2.0. A1c 6.2. Blood sugar is better controlled. Methylprednisolone changed to prednisone 30 mg daily and taper. Nephrology is on board. Continued on Quispe catheter. Current medications reviewed. REVIEW OF SYSTEMS: Unable to obtain a detailed review of systems because of patient history of autism PHYSICAL EXAMINATION: GENERAL: The patient HAS AUTISM, not in any acute distress. Well developed, well nourished. HEENT: b/l bilindness. EOMI. No scleral icterus. No conjunctival pallor. Normocephalic, atraumatic. No pharyngeal erythema. No thyromegaly. CARDIOVASCULAR: S1 and S2 present. No murmurs, rubs, or gallops. PULMONARY: Chest is clear to auscultation, no wheezing or crackles. ABDOMEN: Soft, nontender, nondistended, normoactive bowel sounds. No palpable organomegaly. MUSCULOSKELETAL: No joint swelling or deformity. EXTREMITIES: No cyanosis, clubbing, or pedal edema. NEUROLOGICAL: Gross neurological examination did not reveal any focal deficits. SKIN: No rashes Assessment and plan Acute urinary retention s/p Quispe catheter placement Acute kidney injury secondary to obstructive uropathy. Possible component of hypovolemia. Right hydronephrosis Abnormal urinalysis-possible UTI. Urine culturee showed strep agalectae Angioedema likely due to lisinopril which is on hold. Improved. Autism Leukocytosis secondary to steroids Hyponatremia DVT Proph. Plan Plan: Patient will be continued on methylprednisolone--prednisone. Will continue to taper off. Continue with IV hydration -chnaged to 0.45% . c/w Quispe catheter. Continue Flomax and trial void in the next 7 to 10 days. Follow-up CBC and BMP. Continue with home medications. Urology and nephrology is on board. Anticipate discharge back to [facility] next 24 to 48 hours. Objective - Vital Signs Vital signs: Vital Signs Temp 99.0 F 08/29/22 20:25 Pulse 76 08/29/22 20:25 Resp 18 08/29/22 20:25 BP 135/80 08/29/22 20:25 Pulse Ox 100 08/29/22 20:25 FiO2 Intake & Output 08/29/22 08/29/22 08/30/22 06:59 18:59 06:59 Intake Total 1050 Output Total 2200 1800 Balance -2200 -750 Intake: Intake, IV Titration 1050 Amount Sodium Chloride 0.45% 1, 1000 000 ml @ 125 mls/hr IV . Q8H JAISON Rx#:[id number] cefTRIAXone 2 gm In 50 Sodium Chloride 0.9% 50 ml @ 100 mls/hr IVPB Q24HR JAISON Rx#:[id number] Output: Urine 2200 1800 Other: Voiding Method Indwelling Catheter Indwelling Catheter Indwelling Catheter # Bowel Movements 1 - Labs CBC & Chem 7: 08/29/22 07:50 08/29/22 07:50 Labs: Abnormal Lab Results - Last 24 Hours (Table) 08/28/22 08/29/22 08/29/22 Range/Units 06:59 06:18 07:50 WBC (4.50-10.00) X 10*3/uL RBC (4.40-5.60) X 10*6/uL Hgb (13.0-17.0) g/dL RDW (11.5-14.5) % MPV (9.5-12.2) fL Absolute Nucleated RBC (0.00-0.00) X 10*3/uL Immature Gran # (0.00-0.04) X 10*3/uL Neutrophils # (1.80-7.70) X 10*3/uL Lymphocytes # (0.90-5.00) X 10*3/uL Eosinophils # (0.04-0.35) X 10*3/uL NRBC/100 WBC Diff (0.0-0.0) /100 WBCS BUN 48.6 H (9.0-27.0) mg/dL Creatinine 2.0 H (0.6-1.5) mg/dL Est GFR (CKD-EPI)AfAm 35.7 L (60.0-200.0) Est GFR (CKD-EPI)NonAf 30.8 L (60.0-200.0) BUN/Creatinine Ratio 24.30 H (12.00-20.00) Ratio Glucose 138 H (70-110) mg/dL POC Glucose (mg/dL) 135 H (70-110) mg/dL Hemoglobin A1c 6.1 H (0.0-6.0) % 08/29/22 08/29/22 08/29/22 Range/Units 07:50 07:50 11:51 WBC 16.36 H (4.50-10.00) X 10*3/uL RBC 4.35 L (4.40-5.60) X 10*6/uL Hgb 12.7 L (13.0-17.0) g/dL RDW 15.0 H (11.5-14.5) % MPV 9.2 L (9.5-12.2) fL Absolute Nucleated RBC 0.02 H (0.00-0.00) X 10*3/uL Immature Gran # 0.37 H (0.00-0.04) X 10*3/uL Neutrophils # 14.27 H (1.80-7.70) X 10*3/uL Lymphocytes # 0.84 L (0.90-5.00) X 10*3/uL Eosinophils # 0 L (0.04-0.35) X 10*3/uL NRBC/100 WBC Diff 0.1 H (0.0-0.0) /100 WBCS BUN (9.0-27.0) mg/dL Creatinine (0.6-1.5) mg/dL Est GFR (CKD-EPI)AfAm (60.0-200.0) Est GFR (CKD-EPI)NonAf (60.0-200.0) BUN/Creatinine Ratio (12.00-20.00) Ratio Glucose (70-110) mg/dL POC Glucose (mg/dL) 157 H (70-110) mg/dL Hemoglobin A1c 6.2 H (0.0-6.0) % 08/29/22 08/29/22 Range/Units 16:04 20:44 WBC (4.50-10.00) X 10*3/uL RBC (4.40-5.60) X 10*6/uL Hgb (13.0-17.0) g/dL RDW (11.5-14.5) % MPV (9.5-12.2) fL Absolute Nucleated RBC (0.00-0.00) X 10*3/uL Immature Gran # (0.00-0.04) X 10*3/uL Neutrophils # (1.80-7.70) X 10*3/uL Lymphocytes # (0.90-5.00) X 10*3/uL Eosinophils # (0.04-0.35) X 10*3/uL NRBC/100 WBC Diff (0.0-0.0) /100 WBCS BUN (9.0-27.0) mg/dL Creatinine (0.6-1.5) mg/dL Est GFR (CKD-EPI)AfAm (60.0-200.0) Est GFR (CKD-EPI)NonAf (60.0-200.0) BUN/Creatinine Ratio (12.00-20.00) Ratio Glucose (70-110) mg/dL POC Glucose (mg/dL) 232 H 155 H (70-110) mg/dL Hemoglobin A1c (0.0-6.0) %
[2022-08-30] MEDS: LEVOTHYROXINE 50 MCG TAB PO SCH (05:43)
[2022-08-30] MEDS: SODIUM CHLORIDE 0.45% 1,000 ML IV SCH (05:44)
[2022-08-30] MEDS: INSULIN ASPART (NovoLOG) 100 UNIT/ML VIAL SQ SCH ×4 (06:40→20:59)
[2022-08-30 06:42] LABS: Glucose,Whole Blood 144 mg/dL (70-110)
[2022-08-30] MEDS: FAMOTIDINE 20 MG TAB PO SCH (08:52)
[2022-08-30] MEDS: ASPIRIN 325 MG TAB PO SCH (08:52)
[2022-08-30] MEDS: predniSONE 10 MG TAB PO SCH (08:52)
[2022-08-30] MEDS: TAMSULOSIN 0.4 MG CAP.ER.24H PO SCH (08:52)
[2022-08-30] MEDS: MULTIVITAMINS, THERA 1 EACH TAB PO SCH (08:52)
[2022-08-30] MEDS: BETHANECHOL 10 MG TAB PO SCH ×3 (08:52→20:59)
[2022-08-30] MEDS: CALCIUM CARB-VIT D 500 MG-5 MCG TAB PO SCH (08:53)
[2022-08-30] MEDS ORDERED: hydrALAZINE HCL 20 MG/ML 1 ML VIAL IVP PRN (11:26)
--- NOTE | 2022-08-30 11:27 | P.PN ---
Subjective Patient is seen in follow-up for acute kidney injury. Creatinine 2.0 as of yesterday. Has Quispe catheter. Nonoliguric. Patient is not a reliable historian. On IV fluids. Vital signs are stable. General: No acute distress. HEENT: Head exam is unremarkable. LUNGS: No audible rhonchi or wheezes. HEART: Rate and Rhythm are regular. ABDOMEN: No distention. EXTREMITITES: No edema. Objective - Vital Signs Vital signs: Vital Signs Temp 98.0 F 08/30/22 07:56 Pulse 65 08/30/22 07:56 Resp 18 08/30/22 07:56 BP 167/77 08/30/22 07:56 Pulse Ox 95 08/30/22 07:56 FiO2 Intake & Output 08/29/22 08/30/22 08/30/22 18:59 06:59 18:59 Intake Total 1050 Output Total 1800 1880 Balance -750 -1880 Intake: Intake, IV Titration 1050 Amount Sodium Chloride 0.45% 1, 1000 000 ml @ 125 mls/hr IV . Q8H JAISON Rx#:[id number] cefTRIAXone 2 gm In 50 Sodium Chloride 0.9% 50 ml @ 100 mls/hr IVPB Q24HR JAISON Rx#:[id number] Output: Urine 1800 1880 Other: Voiding Method Indwelling Catheter Indwelling Catheter Indwelling Catheter # Bowel Movements 1 - Labs CBC & Chem 7: 08/29/22 07:50 08/29/22 07:50 Labs: Abnormal Lab Results - Last 24 Hours (Table) 08/28/22 08/29/22 08/29/22 Range/Units 06:59 11:51 16:04 POC Glucose (mg/dL) 157 H 232 H (70-110) mg/dL Hemoglobin A1c 6.1 H (0.0-6.0) % 08/29/22 08/30/22 Range/Units 20:44 06:39 POC Glucose (mg/dL) 155 H 144 H (70-110) mg/dL Hemoglobin A1c (0.0-6.0) % Assessment and Plan Plan: Assessment: 1. Acute kidney injury secondary to obstructive uropathy. Renal function improving. Creatinine 2.0 yesterday. 2. Right hydronephrosis. Urology following. Has Quispe catheter. On Flomax. 3. Hypernatremia secondary to postobstructive diuresis. Improved. 4. Elevated blood pressure. Component of steroids. 5. Autism. 6. UTI on antibiotics. Plan: Maintain IV fluids for now. Add when necessary hydralazine. Follow-up morning labs.
[2022-08-30 11:31] LABS: African American GFR (CKD) 43.5 (60.0-200.0); Anion Gap 16.5 mmol/L (10.00-18.00); BUN/Creat Ratio 25.47 Ratio (12.00-20.00); Blood Urea Nitrogen 43.3 mg/dL (9.0-27.0); Calcium 8.6 mg/dL (8.7-10.3); Carbon Dioxide 16.5 mmol/L (20.0-27.5); Non-African American GFR(CKD) 37.5 (60.0-200.0); Potassium 5.2 mmol/L (3.5-5.5)
[2022-08-30 12:16] LABS: Glucose,Whole Blood 143 mg/dL (70-110)
[2022-08-30] MEDS: SODIUM CHLORIDE 0.9% 1,000 ML IV SCH (12:31)
[2022-08-30] MEDS ORDERED: MAGNESIUM HYDROXIDE 2,400 MG/10 ML CUP PO PRN (12:49)
[2022-08-30] MEDS ORDERED: BENZOCAINE 20% HEMORRHOIDAL OINT 28GM RECTAL PRN (12:49)
[2022-08-30 13:09] LABS: Basophils % (A) 0 %; Eosinophils # (A) 0.1 k/uL (0-0.7); Eosinophils % (A) 1 %; HCT 40.8 % (39.0-53.0); HGB 13.8 gm/dL (13.0-17.5); Lymphocytes # (A) 0.5 k/uL (1.0-4.8); Lymphocytes % (A) 3 %; MCH 29.8 pg (25.0-35.0); MCV 87.7 fL (80.0-100.0); Monocytes # (A) 0.2 k/uL (0-1.0); Monocytes % (A) 2 %; Neutrophils # (A) 13.5 k/uL (1.3-7.7); Neutrophils % (A) 94 %; Platelet Count 261 k/uL (150-450); RBC 4.65 m/uL (4.30-5.90); RDW 14.6 % (11.5-15.5); WBC 14.4 k/uL (3.8-10.6)
[2022-08-30] MEDS: amLODIPine 10 MG TAB PO SCH (17:19)
[2022-08-30 17:26] LABS: Glucose,Whole Blood 208 mg/dL (70-110)
[2022-08-30 19:48] LABS: Glucose,Whole Blood 234 mg/dL (70-110)
[2022-08-30] MEDS: ATORVASTATIN 10 MG TAB PO SCH (20:59)
--- NOTE | 2022-08-31 02:29 | PN ---
PROGRESS NOTE DATE OF SERVICE: 08/30/2022 SUBJECTIVE: This is a 81-year-old gentleman who was admitted with acute urinary retention, acute kidney injury, is being closely monitored. The patient continues to be confused. OBJECTIVE: VITAL SIGNS: On exam, pulse is 65, blood pressure 160/77, respirations 18. CHEST: Clear to auscultation. CARDIOVASCULAR: S1, S2 normal. ABDOMEN: Soft. LABORATORY DATA: Labs are reviewed. ASSESSMENT: 1. Acute urinary retention, status post Quispe. angioedema on admission 2. Acute kidney injury. 3. Hypertension. 4. Right hydronephrosis. 5. Multiple medical issues. RECOMMENDATIONS: Recommend to continue medications. Continue symptomatic treatment. Repeat labs in the morning. Otherwise, I would recommend to add Norvasc to the current regimen. MMODL / IJN: [id number] / MTDD
[2022-08-31] MEDS: LEVOTHYROXINE 50 MCG TAB PO SCH (06:15)
[2022-08-31] MEDS: SODIUM CHLORIDE 0.9% 1,000 ML IV SCH (06:19)
[2022-08-31 06:21] LABS: Glucose,Whole Blood 118 mg/dL (70-110)
[2022-08-31] MEDS: INSULIN ASPART (NovoLOG) 100 UNIT/ML VIAL SQ SCH (06:21)
[2022-08-31] MEDS ORDERED: NON FORMULARY DRUG (Omega-3/Dha/Epa/Fish Oil [Fish Oil 1,000 Mg Softgel] 1 EACH Capsule) PO SCH (08:00)
[2022-08-31 10:02] LABS: African American GFR (CKD) 44 (>60 ml/min/1.73 sqM); Anion Gap 9 mmol/L; Blood Urea Nitrogen 46 mg/dL (9-20); Calcium 8.5 mg/dL (8.4-10.2); Carbon Dioxide 25 mmol/L (22-30); Chloride 102 mmol/L (98-107); Glucose 113 mg/dL (74-99); Non-African American GFR(CKD) 38 (>60 ml/min/1.73 sqM); Potassium 4.3 mmol/L (3.5-5.1); Sodium 136 mmol/L (137-145)
[2022-08-31 10:33] LABS: Basophils % (A) 0 %; Eosinophils # (A) 0.1 k/uL (0-0.7); Eosinophils % (A) 0 %; HCT 44.1 % (39.0-53.0); HGB 14.9 gm/dL (13.0-17.5); Lymphocytes # (A) 1.6 k/uL (1.0-4.8); Lymphocytes % (A) 12 %; MCHC 33.9 g/dL (31.0-37.0); MCV 88.3 fL (80.0-100.0); Mean Platelet Volume 7.5; Monocytes # (A) 0.5 k/uL (0-1.0); Monocytes % (A) 4 %; Neutrophils # (A) 10.9 k/uL (1.3-7.7); Neutrophils % (A) 83 %; Platelet Count 244 k/uL (150-450); RBC 4.99 m/uL (4.30-5.90); RDW 14.6 % (11.5-15.5); WBC 13.2 k/uL (3.8-10.6)
[2022-08-31] MEDS: predniSONE 10 MG TAB PO SCH (11:11)
[2022-08-31] MEDS: TAMSULOSIN 0.4 MG CAP.ER.24H PO SCH (11:11)
[2022-08-31] MEDS: ASPIRIN 325 MG TAB PO SCH (11:11)
[2022-08-31] MEDS: amLODIPine 10 MG TAB PO SCH (11:12)
[2022-08-31] MEDS: CALCIUM CARB-VIT D 500 MG-5 MCG TAB PO SCH (11:12)
[2022-08-31] MEDS: MULTIVITAMINS, THERA 1 EACH TAB PO SCH (11:12)
[2022-08-31] MEDS: FAMOTIDINE 20 MG TAB PO SCH (11:12)
[2022-08-31] MEDS: BETHANECHOL 10 MG TAB PO SCH ×3 (11:14→20:05)
[2022-08-31 13:25] VITALS: BMI 30.8
--- NOTE | 2022-08-31 15:45 | P.PN ---
Subjective Patient is seen in follow-up for acute kidney injury. Renal function improving. Has Quispe catheter. Nonoliguric. Patient is not a reliable historian. On IV fluids. Vital signs are stable. General: No acute distress. HEENT: Head exam is unremarkable. LUNGS: No audible rhonchi or wheezes. HEART: Rate and Rhythm are regular. ABDOMEN: No distention. EXTREMITITES: No edema. Objective - Vital Signs Vital signs: Vital Signs Temp 96.9 F L 08/31/22 07:46 Pulse 63 08/31/22 07:46 Resp 17 08/31/22 07:46 BP 149/86 08/31/22 07:46 Pulse Ox 97 08/31/22 07:46 FiO2 Intake & Output 08/30/22 08/31/22 08/31/22 18:59 06:59 18:59 Intake Total 2160 Output Total 2100 1200 800 Balance 60 -1200 -800 Weight 89 kg Intake: Oral 2160 Output: Urine 2100 1200 800 Uretheral (Quispe) 700 Other: Voiding Method Indwelling Catheter Indwelling Catheter Indwelling Catheter # Bowel Movements 1 - Labs CBC & Chem 7: 08/31/22 09:00 08/31/22 09:00 Labs: Abnormal Lab Results - Last 24 Hours (Table) 08/30/22 08/30/22 08/31/22 Range/Units 17:05 19:46 06:20 WBC (3.8-10.6) k/uL Neutrophils # (1.3-7.7) k/uL Sodium (137-145) mmol/L BUN (9-20) mg/dL Creatinine (0.66-1.25) mg/dL Glucose (74-99) mg/dL POC Glucose (mg/dL) 208 H 234 H 118 H (70-110) mg/dL 08/31/22 08/31/22 Range/Units 09:00 09:00 WBC 13.2 H (3.8-10.6) k/uL Neutrophils # 10.9 H (1.3-7.7) k/uL Sodium 136 L (137-145) mmol/L BUN 46 H (9-20) mg/dL Creatinine 1.67 H (0.66-1.25) mg/dL Glucose 113 H (74-99) mg/dL POC Glucose (mg/dL) (70-110) mg/dL Assessment and Plan Plan: Assessment: 1. Acute kidney injury secondary to obstructive uropathy. Renal function improving. Creatinine 1.67 today. 2. Right hydronephrosis. Urology following. Has Quispe catheter. On Flomax. 3. Hypernatremia secondary to postobstructive diuresis. Improved. 4. Elevated blood pressure. Component of steroids. Stable. 5. Autism. 6. UTI on antibiotics. Plan: Stable for discharge from nephrology standpoint. Follow up outpatient in 1-2 weeks postdischarge.
[2022-08-31 16:50] LABS: Glucose,Whole Blood 183 mg/dL (70-110)
[2022-08-31] MEDS: ATORVASTATIN 10 MG TAB PO SCH (20:05)
[2022-08-31 21:49] LABS: Glucose,Whole Blood 242 mg/dL (70-110)
--- NOTE | 2022-09-01 05:16 | P.PN ---
Subjective Progress Note Date: 08/31/22 This is a 81-year-old male who was recently admitted with acute urinary retention with acute kidney injury and being closely monitored with nephrology following. Patient was seen and evaluated by urology had indwelling Quispe catheter placed for retention and recommend continuing with Quispe is following up with urology in the outpatient setting for trial voiding. Patient will continue on IV ceftriaxone and will continue and complete a short course of oral antibiotics on discharge. Kidney functions are trending down with nephrology following and will follow-up with repeat labs. Patient will need outpatient follow-up arranged. Review of systems: Unable to obtain given patient's mentation Active Medications Amlodipine Besylate (Amlodipine 10 Mg Tab) 10 mg PO DAILY [facility] Last Admin: 08/31/22 11:12 Dose: 10 mg Aspirin (Aspirin 325 Mg Tab) 325 mg PO DAILY [facility] Last Admin: 08/31/22 11:11 Dose: 325 mg Atorvastatin Calcium (Atorvastatin 10 Mg Tab) 10 mg PO HS [facility] Last Admin: 08/31/22 20:05 Dose: 10 mg Benzocaine (Benzocaine 20% Hemorrhoidal Oint 28gm) 1 applic RECTAL BID PRN PRN Reason: Hemorrhoids Bethanechol Chloride (Bethanechol 10 Mg Tab) 10 mg PO TID@0800,1600,2000 [facility] Last Admin: 08/31/22 20:05 Dose: 10 mg Bisacodyl (Bisacodyl 10 Mg Supp) 10 mg RECTAL DAILY PRN PRN Reason: Constipation Calamine/Phenol (Menthol-Zinc Oxide Oint 113 Gm Tube) 1 applic TOPICAL BID PRN; Protocol PRN Reason: Skin Irritation Last Admin: 08/28/22 00:28 Dose: 1 applic Calcium Carbonate (Calcium Carb-Vit D 500 Mg-5 Mcg Tab) 1 each PO DAILY@0800 [facility] Last Admin: 08/31/22 11:12 Dose: 1 each Dextrose/Water (Dextrose 50% Syringe 50 Ml) 25 ml IVP PER PROTOCOL PRN; Protocol PRN Reason: Hypoglycemia Dextrose/Water (Dextrose 50% Syringe 50 Ml) 50 ml IVP PER PROTOCOL PRN; Protocol PRN Reason: Hypoglycemia Diazepam (Diazepam 5 Mg Tab) 5 mg PO DAILY PRN PRN Reason: Agitation Diphenhydramine HCl (Diphenhydramine 50 Mg/Ml 1 Ml Vial) 25 mg IVP Q6HR PRN PRN Reason: Allergy Symptoms Last Admin: 08/24/22 01:23 Dose: 25 mg Famotidine (Famotidine 20 Mg Tab) 20 mg PO DAILY [facility] Last Admin: 08/31/22 11:12 Dose: 20 mg Guaifenesin (Guaifenesin 600 Mg Tablet.Er) 600 mg PO Q6HR PRN PRN Reason: Secretions Guaifenesin (Guaifenesin Syrup 100mg/5ml 200 Mg/10 Ml Cup) 200 mg PO Q4H PRN PRN Reason: Cough Hydralazine HCl (Hydralazine Hcl 20 Mg/Ml 1 Ml Vial) 10 mg IVP Q6HR PRN PRN Reason: Blood Pressure - High Ceftriaxone Sodium 2 gm/ (Sodium Chloride) 50 mls @ 100 mls/hr IVPB Q24HR [facility]; Protocol Last Admin: 08/31/22 11:12 Dose: 100 mls/hr Sodium Chloride (Saline 0.9%) 1,000 mls @ 50 mls/hr IV .Q20H [facility] Last Admin: 08/31/22 06:19 Dose: 50 mls/hr Levothyroxine Sodium (Levothyroxine 50 Mcg Tab) 50 mcg PO DAILY@0630 [facility] Last Admin: 08/31/22 06:15 Dose: 50 mcg Magnesium Hydroxide (Magnesium Hydroxide 2,400 Mg/10 Ml Cup) 4,800 mg PO Q3D PRN PRN Reason: Constipation Multivitamins (Multivitamins, Thera 1 Each Tab) 1 each PO DAILY@0800 [facility] Last Admin: 08/31/22 11:12 Dose: 1 each Naloxone HCl (Naloxone 0.4 Mg/Ml 1 Ml Vial) 0.2 mg IV Q2M PRN PRN Reason: Opioid Reversal Prednisone (Prednisone 10 Mg Tab) 30 mg PO DAILY [facility] Last Admin: 08/31/22 11:11 Dose: 30 mg Tamsulosin HCl (Tamsulosin 0.4 Mg Cap.Er.24h) 0.4 mg PO DAILY@0800 [facility] Last Admin: 08/31/22 11:11 Dose: 0.4 mg PHYSICAL EXAMINATION: GENERAL: The patient is alert and oriented x1, appears at baseline Well developed, well nourished. HEENT: Pupils are round and equally reacting to light. EOMI. no scleral icterus. No conjunctival pallor. Normocephalic, atraumatic. No pharyngeal erythema. No thyromegaly. CARDIOVASCULAR: S1 and S2 muffled PULMONARY: diminished breath sounds bilaterally with no wheezing or rhonchi noted. ABDOMEN: soft. Nontender on exam. non-distended, normoactive bowel sounds. No palpable organomegaly. MUSCULOSKELETAL: No joint swelling or deformity. EXTREMITIES: No cyanosis, clubbing, or pedal edema. NEUROLOGICAL: Gross neurological examination did not reveal any focal deficits. Diffuse weakness SKIN: No rashes. Assessment: Acute urinary retention, status post Quispe Acute kidney injury, improving Hypertension Right hydronephrosis History of autism GI prophylaxis DVT prophylaxis no code Plan: Recommend to continue with current medications and management with nephrology following Kidney functions are improving and patient is continue with indwelling Quispe catheter Continue IV antibiotics and will transition to oral antibiotics for a short course to complete course on discharge Discussed with legal guardian, Holly about discharge planning and monitoring overnight with probable discharge back to [facility] in the a.m. Case management following and will discuss with the [facility] home about transpor tation Will follow-up on repeat labs in a.m. to monitor kidney functions Probable discharge in 24 hours. Patient will need outpatient follow-up with urology and is to continue with indwelling Quispe catheter for now The impression and plan of care has been dictated by Mohini Navarro, nurse practitioner as directed. Dr. Elliott MD I have performed a history and examination and MDM of this patient, discussed the same with the dictator, and agree with the dictator's assessment and plan as written ,documented as a scribe. Based on total visit time, I have performed more than 50% of the visit. Any additional findings or plans will be noted. Objective - Vital Signs Vital signs: Vital Signs Temp 96.9 F L 08/31/22 07:46 Pulse 63 08/31/22 07:46 Resp 17 08/31/22 07:46 BP 149/86 08/31/22 07:46 Pulse Ox 97 08/31/22 07:46 FiO2 Intake & Output 08/30/22 08/31/22 08/31/22 18:59 06:59 18:59 Intake Total 2160 Output Total 2100 1200 Balance 60 -1200 Weight 89 kg Intake: Oral 2160 Output: Urine 2100 1200 Uretheral (Quispe) 700 Other: Voiding Method Indwelling Catheter Indwelling Catheter Indwelling Catheter # Bowel Movements 1 - Labs CBC & Chem 7: 08/31/22 09:00 08/31/22 09:00 Labs: Abnormal Lab Results - Last 24 Hours (Table) 08/30/22 08/30/22 08/31/22 Range/Units 17:05 19:46 06:20 WBC (3.8-10.6) k/uL Neutrophils # (1.3-7.7) k/uL Sodium (137-145) mmol/L BUN (9-20) mg/dL Creatinine (0.66-1.25) mg/dL Glucose (74-99) mg/dL POC Glucose (mg/dL) 208 H 234 H 118 H (70-110) mg/dL 08/31/22 08/31/22 Range/Units 09:00 09:00 WBC 13.2 H (3.8-10.6) k/uL Neutrophils # 10.9 H (1.3-7.7) k/uL Sodium 136 L (137-145) mmol/L BUN 46 H (9-20) mg/dL Creatinine 1.67 H (0.66-1.25) mg/dL Glucose 113 H (74-99) mg/dL POC Glucose (mg/dL) (70-110) mg/dL
[2022-09-01 06:13] LABS: Glucose,Whole Blood 127 mg/dL (70-110)
[2022-09-01] MEDS: LEVOTHYROXINE 50 MCG TAB PO SCH (06:37)
[2022-09-01] MEDS: SODIUM CHLORIDE 0.9% 1,000 ML IV SCH (07:15)
[2022-09-01] MEDS: CALCIUM CARB-VIT D 500 MG-5 MCG TAB PO SCH (09:19)
[2022-09-01] MEDS: ASPIRIN 325 MG TAB PO SCH (09:19)
[2022-09-01] MEDS: FAMOTIDINE 20 MG TAB PO SCH (09:20)
[2022-09-01] MEDS: amLODIPine 10 MG TAB PO SCH (09:20)
[2022-09-01] MEDS: MULTIVITAMINS, THERA 1 EACH TAB PO SCH (09:20)
[2022-09-01] MEDS: TAMSULOSIN 0.4 MG CAP.ER.24H PO SCH (09:20)
[2022-09-01] MEDS: predniSONE 10 MG TAB PO SCH (09:20)
[2022-09-01] MEDS: BETHANECHOL 10 MG TAB PO SCH ×2 (09:30→16:25)
--- NOTE | 2022-09-01 11:05 | P.PN ---
Subjective Patient is seen in follow-up for acute kidney injury. Renal function improving. Has Quispe catheter. Nonoliguric. Patient is not a reliable historian. No changes overnight. Vital signs are stable. General: No acute distress. HEENT: Head exam is unremarkable. LUNGS: No audible rhonchi or wheezes. HEART: Rate and Rhythm are regular. ABDOMEN: No distention. EXTREMITITES: No edema. Objective - Vital Signs Vital signs: Vital Signs Temp 98.5 F 09/01/22 08:00 Pulse 79 09/01/22 08:00 Resp 18 09/01/22 08:00 BP 106/69 09/01/22 08:00 Pulse Ox 96 09/01/22 08:00 FiO2 Intake & Output 08/31/22 09/01/22 09/01/22 18:59 06:59 18:59 Intake Total 118 Output Total 800 1050 Balance -800 -1050 118 Weight 89 kg Intake: Oral 118 Output: Urine 800 1050 Other: Voiding Method Indwelling Catheter Indwelling Catheter # Bowel Movements 1 - Labs CBC & Chem 7: 08/31/22 09:00 08/31/22 09:00 Labs: Abnormal Lab Results - Last 24 Hours (Table) 08/31/22 08/31/22 09/01/22 Range/Units 16:48 21:47 06:12 POC Glucose (mg/dL) 183 H 242 H 127 H (70-110) mg/dL Assessment and Plan Plan: Assessment: 1. Acute kidney injury secondary to obstructive uropathy. Renal function im proving. Creatinine 1.67 yesterday. 2. Right hydronephrosis. Urology following. Has Quispe catheter. On Flomax. 3. Hypernatremia secondary to postobstructive diuresis. Improved. 4. Elevated blood pressure. Component of steroids. Improved. 5. Autism. 6. UTI on antibiotics. Plan: Stable for discharge from nephrology standpoint. Follow up outpatient in 1-2 weeks postdischarge. Blood pressure now on the lower side. Decrease dose of amlodipine to 5 mg once daily. Hold for systolic blood pressure less than 120.
[2022-09-01 11:16] LABS: Glucose,Whole Blood 175 mg/dL (70-110)
[2022-09-01 12:02] LABS: African American GFR (CKD) 44 (>60 ml/min/1.73 sqM); Anion Gap 10 mmol/L; Blood Urea Nitrogen 54 mg/dL (9-20); Calcium 8.2 mg/dL (8.4-10.2); Carbon Dioxide 21 mmol/L (22-30); Chloride 106 mmol/L (98-107); Glucose 177 mg/dL (74-99); Non-African American GFR(CKD) 38 (>60 ml/min/1.73 sqM); Potassium 4.2 mmol/L (3.5-5.1); Sodium 137 mmol/L (137-145)
--- NOTE | 2022-09-01 14:13 | P.DS ---
Providers Date of admission: 08/26/22 08:46 Expected date of discharge: 08/31/22 Attending physician: Pablito Gallagher Consults: 08/25/22 13:22 Consult Physician Routine Consulting Provider: Patito Meza Consult Reason/Comments: Acute kidney injury Do you want consulting provider notified?: Yes 08/25/22 16:17 Consult Physician Routine Consulting Provider: Cedrick Martell Consult Reason/Comments: urinary retention, cohen already in Do you want consulting provider notified?: Yes Primary care physician: HARINDER Pablo Hospital Course: Final diagnosis Acute urinary retention, status post Cohen Acute kidney injury, improving Hypertension Right hydronephrosis History of autism GI prophylaxis DVT prophylaxis no code Discharge disposition Patient is being discharged in a stable condition with guarded prognosis to [facility]. Patient will follow-up with Dr. Lebron in the outpatient setting upon discharge. Patient is to follow-up with nephrology in one week as scheduled. Recommend repeat labs in the next 2-3 days to monitor kidney functions. Would recommend holding blood pressure medication for now until repeat labs and follow-up appointment with nephrology. Total time taken is greater than 35 minutes. Hospital course This is a 81-year-old male who was recently admitted with urinary retention with acute kidney injury and some forms of dehydration. Patient did have urology evaluate the patient recommending continuing with indwelling Cohen catheter with outpatient follow-up in 1-2 weeks. Patient was continued on antibiotics and will continue very short course of oral antibiotics to complete the course on discharge. Patient was evaluated by nephrology and had been having some issues with blood pressure along with kidney injury although stable and would recommend repeat labs of CBC, BMP, magnesium in the next 2-3 days with outpatient follow- up in one week. Patient has been cleared by consultations for discharge. Please refer to other consultation notes for further HPI. Currently no reports of chest pain, shortness of breath, or palpitations. Patient is afebrile. No reports of nausea or vomiting and patient is tolerating diet. Patient will be going to [facility] home where he resides today. Guarded prognosis. Physical exam: Gen: This is a 81-year-old male who is awake, alert, autistic, well-developed, well-nourished HEENT: Head is atraumatic, normocephalic. Pupils equal, round. Sclerae is anicteric. NECK: Supple. No JVD. No lymphadenopathy. No thyromegaly. LUNGS: Breath sounds diminished bilaterally with no wheezes or rhonchi. No intercostal retractions. HEART: S1, S2 are muffled ABDOMEN: Soft. Bowel sounds are present. No masses. No tenderness. EXTREMITIES: No pedal edema. No calf tenderness. NEUROLOGICAL: Patient is awake, alert and oriented x1. Diffusely weak Please refer to medication reconciliation sheet for a list of medications. The impression and plan of care has been dictated by Mohini Navarro, Nurse Practitioner as directed. Dr. Elliott MD I have performed a history and examination and MDM of this patient, discussed the same with the dictator, and agree with the dictator's assessment and plan as written ,documented as a scribe. Based on total visit time, I have performed more than 50% of the visit. Patient Condition at Discharge: Fair Plan - Discharge Summary New Discharge Prescriptions: New cefUROXime axetiL [Cefuroxime] 500 mg PO BID 4 Days #8 tab predniSONE 10 mg PO DIRECTED #18 tab Continue Aspirin 325 mg PO DAILY Levothyroxine Sodium [Levo-T] 50 mcg PO DAILY@1600 Loperamide [Imodium] 2 mg PO DAILY@0800 Tamsulosin [Flomax] 0.4 mg PO DAILY@0800 diazePAM [Valium] 5 mg PO DAILY PRN PRN Reason: Agitation Mineral Oil [Fleet Mineral Oil] 133 ml RECTAL DAILY PRN PRN Reason: Constipation Acetaminophen Tab [Tylenol] 500 - 1,000 mg PO Q8HR PRN PRN Reason: Pain Magnesium Hydroxide [Milk of Magnesia] 4,800 mg PO Q3D PRN PRN Reason: Constipation Irhfghem-Jfahoapjom-Gbii Oint [Triple Antibiotic Ointment] 1 applic TOPICAL BID PRN PRN Reason: Skin Irritation Bethanechol [Urecholine] 10 mg PO TID@0800,1600,2000 [place]-3/Dha/Epa/Fish Oil [Fish Oil 1,000 mg Softgel] 1 cap PO DAILY@0800 Simvastatin 10 mg PO HS bisacodyL [Dulcolax] 10 mg RECTAL DAILY PRN PRN Reason: Constipation guaiFENesin [guaiFENesin Oral Solution] 200 mg PO Q4H PRN PRN Reason: Cough Phenyleph/Mineral Oil/Petrolat [Preparation H Ointment] 1 applic RECTAL BID PRN PRN Reason: Hemorrhoids guaiFENesin [Mucinex] 600 mg PO Q6HR PRN PRN Reason: Secretions Nystatin 100,000Unit/gm Cream [Mycostatin Cream] 1 applic TOPICAL BID PRN PRN Reason: Rash Mylanta 30 ml PO Q4H PRN PRN Reason: indigestion/heartburn Multivitamins, Thera [Multivitamin (formulary)] 1 tab PO DAILY@0800 Calcium Carb-Vit D 500Mg-5Mcg [Oscal 500+D 5 Mcg (200 Iu)] 1 tab PO DAILY@0800 Discontinued lisinopriL [Zestril] 20 mg PO DAILY@0800 Discharge Medication List Acetaminophen Tab [Tylenol] 500 - 1,000 mg PO Q8HR PRN 08/24/22 [History] Aspirin 325 mg PO DAILY 08/24/22 [History] Bethanechol [Urecholine] 10 mg PO TID@0800,1600,199908/24/22 [History] Calcium Carb-Vit D 500Mg-5Mcg [Oscal 500+D 5 Mcg (200 Iu)] 1 tab PO DAILY@0800 08/24/22 [History] Levothyroxine Sodium [Levo-T] 50 mcg PO DAILY@1600 08/24/22 [History] Loperamide [Imodium] 2 mg PO DAILY@0800 08/24/22 [History] Magnesium Hydroxide [Milk of Magnesia] 4,800 mg PO Q3D PRN 08/24/22 [History] Mineral Oil [Fleet Mineral Oil] 133 ml RECTAL DAILY PRN 08/24/22 [History] Multivitamins, Thera [Multivitamin (formulary)] 1 tab PO DAILY@0800 08/24/22 [History] Mylanta 30 ml PO Q4H PRN 08/24/22 [History] Htouqppw-Ogbcxxuljr-Xdrb Oint [Triple Antibiotic Ointment] 1 applic TOPICAL BID PRN 08/24/22 [History] Nystatin 100,000Unit/gm Cream [Mycostatin Cream] 1 applic TOPICAL BID PRN 08/24/22 [History] [place]-3/Dha/Epa/Fish Oil [Fish Oil 1,000 mg Softgel] 1 cap PO DAILY@0800 08/24/22 [History] Phenyleph/Mineral Oil/Petrolat [Preparation H Ointment] 1 applic RECTAL BID PRN 08/24/22 [History] Simvastatin 10 mg PO HS 08/24/22 [History] Tamsulosin [Flomax] 0.4 mg PO DAILY@0800 08/24/22 [History] bisacodyL [Dulcolax] 10 mg RECTAL DAILY PRN 08/24/22 [History] diazePAM [Valium] 5 mg PO DAILY PRN 08/24/22 [History] guaiFENesin [Mucinex] 600 mg PO Q6HR PRN 08/24/22 [History] guaiFENesin [guaiFENesin Oral Solution] 200 mg PO Q4H PRN 08/24/22 [History] cefUROXime axetiL [Cefuroxime] 500 mg PO BID 4 Days #8 tab 08/31/22 [Rx] predniSONE 10 mg PO DIRECTED #18 tab 09/01/22 [Rx] Follow up Appointment(s)/Referral(s): None,Stated [REFERRING] - 1 Week (LEGAL GUARDIAN TO ARRANGE FOLLOW UP WITH A PRIMARY CARE PROVIDER. (Name on file (Elizabeth Le[facility]) is no longer patient's PCP.) ) Zaheer Burnett DO [STAFF PHYSICIAN] - 1 Week (Office will call Legal Guardian to arrange appointment date and time. ) Cedrick Martell MD [STAFF PHYSICIAN] - 1 Week (Cohen catheter for retention. 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 #[phone]. Cohen catheter until September 01- September 04, 2022. When cohen discontinued, see urology for voiding trial Activity Limited until follow-up Follow-up with primary care provider on discharge continue with indwelling Cohen catheter and outpatient follow-up with urology Continue antibiotics for 4 days to complete the course Follow-up nephrology outpatient Recommend repeat CBC and BMP along with magnesium in the next 2-3 days Discharge Disposition: TRANSFER TO SNF/ECF
[2022-09-01 16:30] LABS: Basophils # (A) 0.04 X 10*3/uL (0.00-0.10); Basophils % (A) 0.3 %; Eosinophils # (A) 0.05 X 10*3/uL (0.04-0.35); Eosinophils % (A) 0.4 %; HCT 43.1 % (39.6-50.0); HGB 13.8 g/dL (13.0-17.0); Immature Grans, Automated 1.7 %; Lymphocytes # (A) 1.31 X 10*3/uL (0.90-5.00); Lymphocytes % (A) 10.4 %; MCH 29.1 pg (27.0-32.0); MCV 90.9 fL (80.0-97.0); Mean Platelet Volume 9.8 fL (9.5-12.2); Monocytes # (A) 0.74 X 10*3/uL (0.20-1.00); Monocytes % (A) 5.8 %; NRBC Per 100 WBC 0 /100 WBCS (0.0-0.0); Neutrophils % (A) 81.4 %; Platelet Count 218 X 10*3/uL (140-440); RBC 4.74 X 10*6/uL (4.40-5.60); RDW 14.8 % (11.5-14.5); WBC 12.65 X 10*3/uL (4.50-10.00)
[2022-09-01 17:17] VITALS: BP 100/67; PULSE 96; RESP 18; TEMP 97.8
[2022-09-02] MEDS ORDERED: amLODIPine 5 MG TAB PO SCH (09:00)
== END 2022-09-01 17:55 | DRG 683 ==
LOC: EEVIPCON 00:52 → EC 00:52 → 4SSUR 01:28 → OBSVTOIN 08-26 08:46
PROVIDERS: ADMIT Hospitalist; ATTEND Hospitalist
DX: N17.9 Acute kidney failure, unspecified (principal); E87.0 Hyperosmolality and hypernatremia; E87.1 Hypo-osmolality and hyponatremia; F84.0 Autistic disorder; T78.3XXA Angioneurotic edema, initial encounter; N13.6 Pyonephrosis; E86.1 Hypovolemia; H54.8 Legal blindness, as defined in USA; H91.90 Unspecified hearing loss, unspecified ear; I10 Essential (primary) hypertension; Z66 Do not resuscitate; N32.3 Diverticulum of bladder; R33.9 Retention of urine, unspecified; T38.0X5A Adverse effect of glucocorticoids and synthetic analogues, initial encounter; D72.829 Elevated white blood cell count, unspecified; T46.4X5A Adverse effect of angiotensin-converting-enzyme inhibitors, initial encounter; Z79.82 Long term (current) use of aspirin; Z79.890 Hormone replacement therapy; Z79.899 Other long term (current) drug therapy; Z88.8 Allergy status to other drugs, medicaments and biological substances
CPT/HCPCS: 76770; 80048; 80053; 81001; 82570; 83036; 83735; 83935; 84133; 84300; 85025; 87086; 96374; 96375; 99284